=== PATIENT | female | born 1940 | race Caucasian/White ===

== ENCOUNTER 2024-05-15 09:00 | Inpatient (IN) ==
--- NOTE | 2024-05-15 09:26 | Emergency Department Note ---
History of Present Illness General Chief complaint: Fall Stated complaint: FALLS, HIP AND BACK PAIN Time Seen by Provider: 05/15/24 09:09 History of Present Illness Maximum Pain Intensity: 7 This is an 84-year-old female that presents to the emergency department via private vehicle accompanied by daughter and son with complaints of "frequent falls". The patient as well as daughter at bedside and son provide the history. They note that over the past 4 to 5 days the patient has had 6 falls total. 3 of which were yesterday. The patient does not recall the falls and notes the first 1 was when she became tangled in some sheets/blankets. She then notes she laid on the ground for some time but is unable to quantify the duration. She also notes that she has called the ambulance 3 times in the past 2 days for assistance that she cannot get up when she falls. She denies any fevers, chills, nausea, vomiting, striking the head, loss of consciousness, chest pain, shortness of breath, dizziness or lightheadedness. The patient does note low back pain and left hip pain. Daughter at bedside also notes that she fell this past and was on the ground for about 1 hour until they were able to get to her and help her up. The patient does live alone. Home Medications Medication Instructions Recorded Confirmed Type alprazolam 0.5 mg tablet 1 mg PO HS ANXIETY/SLEEP 03/14/24 05/15/24 History amlodipine 5 mg tablet 5 mg PO QA 03/14/24 05/15/24 History cholecalciferol (vitamin D3) 25 1,000 unit PO DAILY 03/14/24 05/15/24 History mcg (1,000 unit) capsule (Vitamin D3) clopidogrel 75 mg tablet 75 mg PO QA 03/14/24 05/15/24 History cyanocobalamin (vitamin B-12) 1,000 mcg PO DAILY 03/14/24 05/15/24 History 1,000 mcg tablet (Vitamin B-12) diphenhydramine HCl 25 mg capsule 25 mg PO DIRECTED PRN Congestion 03/14/24 05/15/24 History (Benadryl) escitalopram oxalate 20 mg tablet 20 mg PO QA 03/14/24 05/15/24 History levothyroxine 125 mcg tablet 125 mcg PO DAILYBB 03/14/24 05/15/24 History rosuvastatin 20 mg tablet 20 mg PO HS 03/14/24 05/15/24 History acetaminophen 325 mg tablet 650 mg (2 x 325 mg) PO Q6H PRN 03/19/24 05/15/24 Rx fever #60 tabs lidocaine 4 % topical patch 1 patch topical DAILY #15 ea 03/19/24 05/15/24 Rx polyethylene glycol 3350 17 gram 17 g PO DAILY PRN constipation #30 03/19/24 05/15/24 Rx oral powder packet (Miralax) ea Allergies Allergy/AdvReac Type Severity Reaction Status Date / Time No Known Allergies Allergy Verified 03/14/24 23:16 Past Med/Surg History Problem List (Updated 05/15/24 @ 16:17 by Otf Fernando PA-C) Hip pain (Acute) Low back pain (Acute) Frequent falls (Acute) Weakness (Acute) Medical History (Updated 05/15/24 @ 16:17 by Otf Fernando PA-C) History of CVA (cerebrovascular accident) Mood disorder Gait abnormality CKD (chronic kidney disease), stage III Hypothyroidism HTN (hypertension) Compression fracture of L3 vertebra Surgical History (Updated 05/15/24 @ 13:01 by Marii Castañeda PA-C) H/O cataract removal with insertion of prosthetic lens H/O laparoscopy S/P partial colectomy Family History (Updated 05/15/24 @ 13:01 by Marii Castañeda PA-C) Other Asthma Cancer Heart disease Social History Smoking Status: Never smoker Tobacco Type: Cigarettes Do You Dip or Chew Tobacco: No; Hx Alcohol Use: No Hx Substance Use: No Preferred Language: Azeri Communication Ability: Effective Head Golf Coach Required: No Beliefs That Will Affect Care: None Current Living Situation: Alone Other Information That Helps Us Care for You: No Feels Safe at Home: Yes Safety Concerns: Feels Safe At This Time Assistive Devices: Denture - Upper, Glasses and Walker Review of Systems A total of 10 systems reviewed and were otherwise negative Physical Exam Vital Signs Vital Signs - 24 hr 05/15/24 09:05 05/15/24 09:18 05/15/24 09:45 Temperature 36.0 C L Temperature Source Temporal Artery Scan Pulse Rate 58 L 62 58 L Respiratory Rate 20 16 Blood Pressure 159/84 H 151/70 H Blood Pressure Mean 109 97 Pulse Oximetry 98 97 Oxygen Delivery Method Room Air Sepsis Recent Fever Within 48 Hours No Sepsis New/Unexplained Change in Mental Status N/A Sepsis Action Taken by Nursing No Action Required 05/15/24 10:36 05/15/24 11:01 Temperature Temperature Source Pulse Rate 70 71 Respiratory Rate 18 18 Blood Pressure 178/71 H 152/87 H Blood Pressure Mean 106 116 Pulse Oximetry 98 98 Oxygen Delivery Method Room Air Room Air Sepsis Recent Fever Within 48 Hours Sepsis New/Unexplained Change in Mental Status Sepsis Action Taken by Nursing VITAL SIGNS - Vital signs and nursing notes were reviewed. Stable and afebrile. GENERAL -84-year-old female appearing her stated age who is in no acute distress. Communicates well with provider and answers questions appropriately. SKIN - Without rashes. No meningeal or petechial rash. HEAD - Normocephalic, Atraumatic. No Choi's Sign or Raccoon's Eyes. No depressed skull fractures palpable. EYES - PERRL with EOMI bilaterally. Without subconjunctival hemorrhage. Palpebral conjunctiva pink and moist with no injection. EARS - No deformities of external structures noted on gross examination bilaterally. No hemotympanum present. No tympanic perforation noted. Handle of malleus, umbo, cone of light, pars tensa/flaccid all easily visualized. NOSE - Midline and without cyanosis. No epistaxis or clear watery discharge noted. Septum midline without deviation. No septal hematoma noted. No overlying ecchymosis noted. MOUTH/OROPHARYNX - Without perioral cyanosis. Tongue midline with equal elevation of palate bilaterally. No blood noted in the oropharynx. No tonsillar hypertrophy, erythema, or exudates noted. No dental fractures noted. NECK - No tenderness to palpation over the cervical spinous processes. No cervical paraspinal muscle tenderness noted. LUNGS - Chest wall symmetric without accessory muscle use, intercostals retractions, or central cyanosis. No flail chest or depressed fractures noted. No paradoxical chest wall movements noted. No tenderness with deep inspiration noted against the examiner's applied pressure to the lateral chest mena. Normal vesicular breath sounds CTA B/L. No wheezes, rales, or rhonchi appreciated. CARDIAC - RRR ABDOMEN - Abdominal contour normal and without pulsations or visible masses. BS normoactive all four quadrants. No rebound tenderness or guarding noted. Negative [place]'s or Ornelas Capellan's Signs. No tenderness, palpable masses, hepatosplenomegaly, or ascites noted. MUSCULOSKELETAL-there is tenderness to the inferior aspect of the L-spine, midline. This extends to the paraspinous musculature near the sacrum. There is also left lateral hip tenderness. There is no overlying ecchymosis. EXTREMITIES - +5/5 strength noted in UE/LE bilaterally. NEUROLOGIC - Cranial nerves II through XII grossly intact. PSYCH - A&O, and cooperates fully with examiner. Pt is very pleasant and interacts well with examiner. Course Administered Medications Acetaminophen (Acetaminophen 500 Mg Tab) 1,000 mg PO Q8H [facility] Stop: 06/14/24 13:59 Last Admin: 05/15/24 14:57 Dose: 1,000 mg Documented By: JESENIA Heparin Sodium (Porcine) (Heparin Sod 5,000 Unit/0.5 Ml Vial) 5,000 units SQ Q8 [facility] Stop: 06/14/24 13:59 Last Admin: 05/15/24 14:58 Dose: 5,000 units Documented By: JESENIA Sodium Chloride (Nss) 1,000 mls @ 80 mls/hr IV .[id number] [facility] Stop: 05/16/24 15:29 Last Admin: 05/15/24 15:02 Dose: 80 mls/hr Documented By: [facility] Medical Decision Making Laboratory Data 05/15/24 09:50 05/15/24 09:50 Lab Results 05/15/24 Range/Units 09:50 WBC 7.92 (4.8-10.8) K/ul RBC 3.88 L (4.20-5.40) M/uL Hgb 11.8 L (12.0-16.0) g/dl Hct 35.9 L (37.0-47.0) % MCV 92.5 (80.0-100.0) fL MCH 30.4 (25.0-34.0) pg MCHC 32.9 (32.0-36.0) g/dL RDW Std Deviation 43.7 (36.4-46.3) fL RDW Coeff of Genet 12.9 (11.5-14.5) % Plt Count 210 (130-400) K/uL MPV 9.6 (9.4-12.4) fL Immature Gran % (Auto) 0.3 % Neut % (Auto) 64.2 % Lymph % (Auto) 26.4 % [place] % (Auto) 7.2 % Eos % (Auto) 1.4 % Baso % (Auto) 0.5 % Neut # (Auto) 5.09 (1.40-6.50) K/uL Lymph # (Auto) 2.09 (1.20-3.40) K/uL [place] # (Auto) 0.57 (0.11-0.59) K/uL Eos # (Auto) 0.11 (0.00-0.50) K/uL Baso # (Auto) 0.04 (0.00-0.20) K/uL Immature Gran # (Auto) 0.02 (0.01-0.20) K/uL PT 11.0 (9.0-12.0) Seconds INR 1.0 (0.9-1.1) APTT 22 (21-31) Seconds PTT Ratio 0.8 Sodium 141 (136-145) mmol/L Potassium 3.8 (3.5-5.1) mmol/L Chloride 107 (98-107) mmol/L Carbon Dioxide 27 (21-32) mmol/L Anion Gap 7 (3-11) BUN 17 (6-23) mg/dl Creatinine 1.21 H (0.6-1.2) mg/dl Est Cr Clr Drug Dosing Not Reportable Est GFR ( Amer) 47.6 ml/min Est GFR (Non-Af Amer) 41.1 ml/min BUN/Creatinine Ratio 14.0 (10-20) Glucose 88 (70-99(Fasting)) mg/dl Calcium 9.3 (8.6-10.3) mg/dl Magnesium 2.2 (1.7-2.4) mg/dl Total Bilirubin 0.6 (0.2-1.0) mg/dl AST 16 (13-39) U/L ALT 9 (7-52) U/L Alkaline Phosphatase 48 (34-104) U/L Total Creatine Kinase 70 (26-192) U/L Troponin I High Sens 2.9 (0-14) pg/ml Total Protein 7.1 (6.0-8.3) gm/dl Albumin 4.3 (3.4-5.0) gm/dl Globulin 2.8 (2.5-4.0) gm/dl Albumin/Globulin Ratio 1.5 (0.9-2) TSH 0.662 (0.300-4.500) uIu/ml Imaging Data Radiologist's Impression: Cervical Spine CT 05/15/24 09:[address] DOSE: HISTORY: falls x 6 in the past few days TECHNIQUE: Multiaxial CT images of the cervical spine were performed and reformatted in the sagittal and coronal plane without the use of contrast. A dose lowering technique was utilized adhering to the principles of ALARA. COMPARISON: Cervical spine CT 03/14/2024. FINDINGS: No fractures. No subluxation. Prevertebral soft tissues and the C1-C2 interval are intact. No pneumothorax. Severe disc space narrowing with large anterior osteophytes from C4 through C7 again noted. Moderate facet degenerative changes. IMPRESSION: No fractures within the cervical spine. ACT 112: Negative or not required by law. Electronically signed by: Samir Rooney M.D. 05/15/2024 9:58 AM Chest X-Ray 05/15/24 09:18 XR chest 1V portable HISTORY: falls x 6 in the past few days COMPARISON: Chest 03/14/2024. FINDINGS: No pneumothorax. No pleural effusions. The lungs are clear. The cardiac silhouette is top normal in size. There are calcifications within the aortic knob. No acute fractures. IMPRESSION: No significant change compared to the prior study. No acute process. ACT 112: Negative or not required by law. Electronically signed by: Samir Rooney M.D. 05/15/2024 10:[address] 05/15/24 09:[address] DOSE: HISTORY: falls x 6 in the past few days TECHNIQUE: Multiaxial CT images of the head were performed without the use of intravenous contrast. Automated exposure control was utilized for this study. A dose lowering technique was utilized adhering to the principles of ALARA. Comparison: Head CT 03/14/2024. Findings: Mild mucosal thickening within the paranasal sinuses. Mild nasal bone deformities are likely chronic. The mastoid air cells are clear. The calvarium and skull base are intact. There is no mass, hematoma, midline shift, acute infarct. White matter hypodensity is nonspecific but suggestive of microvascular ischemic change. The ventricles and sulci demonstrate mild age-related involutional changes. Old bilateral basal ganglia infarcts again noted. Impression: No significant change compared to the prior study. No acute intracranial abnormality. ACT 112: Negative or not required by law. Electronically signed by: Samir Rooney M.D. 05/15/2024 9:[address] 05/15/24 09:18 CT lumbar spine wo con HISTORY: 84 years-old Female falls x 6 in the past few days acute pain in the low back status post fall. History of L1 and L2 transverse process and T12 fractures COMPARISON: CT pelvis same day, MRI lumbar spine 03/15/2024 TECHNIQUE: Multiple axial CT images of the lumbar spine were obtained without IV contrast. A dose lowering technique was used consistent with the principals of ALARA. FINDINGS: Atherosclerosis of the aorta. Colonic diverticulosis. Sigmoid colonic anastomosis. Suboptimal evaluation of the central canal or neural foramina by CT technique. There is at least mild central canal stenosis at L2-L3 and L3-L4. Chronic L3 compression deformity. Multilevel vacuum disc phenomena with moderate intervertebral disc space narrowing, severe spondylotic spurring and facet arthrosis. Moderate degeneration of the SI joints. Healing subacute to chronic appearing L1 and L2 transverse process fractures. IMPRESSION: 1. No acute fracture or subluxation of the lumbar spine. 2. Chronic L3 compression deformity. ACT 112: Negative or not required by law. The above report was generated using voice recognition software. It may contain grammatical, syntax or spelling errors. Electronically signed by: Syed Estrada M.D. 05/15/2024 10:[address] 05/15/24 09:18 CT pelvis wo con HISTORY: 84 years-old Female falls x 6 in the past few days, pain acute pelvic pain status post fall COMPARISON: CT lumbar spine of same day TECHNIQUE: Multiple axial CT images of the pelvis were obtained without IV contrast. A dose lowering technique was used consistent with the principals of ALARA. FINDINGS: Colonic diverticulosis with sigmoid suture material. No evidence of acute diverticulitis. No acute intrapelvic abnormality. Postoperative changes of the anterior abdominal wall. Atherosclerosis of the aorta. Unremarkable musculature. Demineralized appearance of the bones. No acute fracture or subluxation identified. Mild to moderate osteoarthritis of the hips. Partially imaged chronic L3 compression deformity. IMPRESSION: No acute fracture identified. ACT 112: Negative or not required by law. The above report was generated using voice recognition software. It may contain grammatical, syntax or spelling errors. Electronically signed by: Syed Estrada M.D. 05/15/2024 10:09 AM MDM Narrative Patient was seen and evaluated as above in room C11b. Review was performed of triage nursing notes and vital signs. I did review pertinent previous visits and patient history. After obtaining a thorough history and physical examination the above work up was performed. Patient presents to us today for evaluation of frequent falls. She also has low back pain and left hip pain. CT imaging was performed of the head, C-spine as well as L-spine and pelvis. Formal radiology report is as above. I did also personally reviewed the imaging from her interpretation no fracture or dislocation. An EKG was also performed and this reveals normal sinus rhythm at a rate of 60 bpm. QTc 470. QRS 86. No ST elevation. Chest x-ray was also obtained and per my interpretation is without acute process. Laboratory studies reveal no leukocytosis. Minor anemia noted with hemoglobin at 11.8. Coags normal. Mild elevation of creatinine 1.21 which is mildly elevated compared to the patient's baseline. Magnesium is normal. Troponin returned normal. Total CK normal as well. TSH reveals euthyroid state. Urinalysis does not suggest infection, but will note trace leukocytes. At this time noting frequent falls I do believe that further evaluation and management is warranted in the inpatient setting. Case discussed with the hospitalist service. Please refer to further documentation regarding her stay. Case was discussed with the attending physician. GCS: 15 In the evaluation and treatment of this patient the following differential diagnoses were entertained: Fracture, dislocation, subluxation, contusion, UTI, sepsis, CVA, among others. Impression & Plan Frequent falls, Low back pain, Hip pain Discharge Plan Visit Data Chief Complaint: Fall Stated Complaint: FALLS, HIP AND BACK PAIN ED Provider: Adam Del Rio ED Midlevel Provider: Otf Fernando Discharge Problem: Frequent falls, Low back pain, Hip pain Patient Disposition: Admitted As Inpatient Condition: Good Discharge Instructions Interventions: ED Discharge Assessment Last Done: 05/15/24 13:06
--- NOTE | 2024-05-15 09:56 | CT Scan Report ---
HEAD CT NONCONTRAST CT DOSE: HISTORY: falls x 6 in the past few days TECHNIQUE: Multiaxial CT images of the head were performed without the use of intravenous contrast. A utomated exposure control was utilized for this study. A dose lowering technique was utilized adheri ng to the principles of ALARA. Comparison: Head CT 03/14/2024. Findings: Mild mucosal thickening within the paranasal sinuses. Mild nasal bone deformities are likel y chronic. The mastoid air cells are clear. The calvarium and skull base are intact. There is no mass , hematoma, midline shift, acute infarct. White matter hypodensity is nonspecific but suggestive of m icrovascular ischemic change. The ventricles and sulci demonstrate mild age-related involutional tobin ges. Old bilateral basal ganglia infarcts again noted. Impression: No significant change compared to the prior study. No acute intracranial abnormality. ACT 112: Negative or not required by law. Electronically signed by: Samir Rooney M.D. 05/15/2024 9:54 AM
--- NOTE | 2024-05-15 10:00 | CT Scan Report ---
CERVICAL SPINE CT CT DOSE: HISTORY: falls x 6 in the past few days TECHNIQUE: Multiaxial CT images of the cervical spine were performed and reformatted in the sagittal and coronal plane without the use of contrast. A dose lowering technique was utilized adhering to th e principles of ALARA. COMPARISON: Cervical spine CT 03/14/2024. FINDINGS: No fractures. No subluxation. Prevertebral soft tissues and the C1-C2 interval are intact. No pneumothorax. Severe disc space narrowing with large anterior osteophytes from C4 through C7 again noted. Moderate facet degenerative changes. IMPRESSION: No fractures within the cervical spine. ACT 112: Negative or not required by law. Electronically signed by: Samir Rooney M.D. 05/15/2024 9:58 AM
--- NOTE | 2024-05-15 10:07 | CT Scan Report ---
CT lumbar spine wo con HISTORY: 84 years-old Female falls x 6 in the past few days acute pain in the low back status post f all. History of L1 and L2 transverse process and T12 fractures COMPARISON: CT pelvis same day, MRI lumbar spine 03/15/2024 TECHNIQUE: Multiple axial CT images of the lumbar spine were obtained without IV contrast. A dose low ering technique was used consistent with the principals of GLORY. FINDINGS: Atherosclerosis of the aorta. Colonic diverticulosis. Sigmoid colonic anastomosis. Suboptimal evaluat ion of the central canal or neural foramina by CT technique. There is at least mild central canal jose d nosis at L2-L3 and L3-L4. Chronic L3 compression deformity. Multilevel vacuum disc phenomena with mod erate intervertebral disc space narrowing, severe spondylotic spurring and facet arthrosis. Moderate degeneration of the SI joints. Healing subacute to chronic appearing L1 and L2 transverse process fra ctures. IMPRESSION: 1. No acute fracture or subluxation of the lumbar spine. 2. Chronic L3 compression deformity. ACT 112: Negative or not required by law. The above report was generated using voice recognition software. It may contain grammatical, syntax o r spelling errors. Electronically signed by: Syed Estrada M.D. 05/15/2024 10:06 AM
[2024-05-15 10:10] LABS: Basophils # (auto) 0.04 K/uL (0.00-0.20); Basophils % (auto) 0.5 %; Eosinophils # (auto) 0.11 K/uL (0.00-0.50); Eosinophils % (auto) 1.4 %; Hematocrit (blood only) 35.9 % (37.0-47.0); Hemoglobin 11.8 g/dl (12.0-16.0); Immature Granulocytes # (auto) 0.02 K/uL (0.01-0.20); Immature Granulocytes % (auto) 0.3 %; Lymphocytes # (auto) 2.09 K/uL (1.20-3.40); Lymphocytes % (auto) 26.4 %; Mean Corpuscular Hemoglobin 30.4 pg (25.0-34.0); Mean Corpuscular Hgb Conc 32.9 g/dL (32.0-36.0); Mean Corpuscular Volume 92.5 fL (80.0-100.0); Mean Platelet Volume 9.6 fL (9.4-12.4); Monocytes # (auto) 0.57 K/uL (0.11-0.59); Monocytes % (auto) 7.2 %; Neutrophils # (auto) 5.09 K/uL (1.40-6.50); Neutrophils % (auto) 64.2 %; Platelet Count 210 K/uL (130-400); RDW Coefficient of Variation 12.9 % (11.5-14.5); RDW Standard Deviation 43.7 fL (36.4-46.3); Red Blood Count 3.88 M/uL (4.20-5.40); White Blood Count 7.92 K/ul (4.8-10.8)
--- NOTE | 2024-05-15 10:10 | CT Scan Report ---
CT pelvis wo con HISTORY: 84 years-old Female falls x 6 in the past few days, pain acute pelvic pain status post fall COMPARISON: CT lumbar spine of same day TECHNIQUE: Multiple axial CT images of the pelvis were obtained without IV contrast. A dose lowering technique was used consistent with the principals of GLORY. FINDINGS: Colonic diverticulosis with sigmoid suture material. No evidence of acute diverticulitis. No acute in trapelvic abnormality. Postoperative changes of the anterior abdominal wall. Atherosclerosis of the a hermelinda. Unremarkable musculature. Demineralized appearance of the bones. No acute fracture or subluxation identified. Mild to moderate osteoarthritis of the hips. Partially imaged chronic L3 compression deformity. IMPRESSION: No acute fracture identified. ACT 112: Negative or not required by law. The above report was generated using voice recognition software. It may contain grammatical, syntax o r spelling errors. Electronically signed by: Syed Estrada M.D. 05/15/2024 10:09 AM
--- NOTE | 2024-05-15 10:14 | XRay Report ---
XR chest 1V portable HISTORY: falls x 6 in the past few days COMPARISON: Chest 03/14/2024. FINDINGS: No pneumothorax. No pleural effusions. The lungs are clear. The cardiac silhouette is top n ormal in size. There are calcifications within the aortic knob. No acute fractures. IMPRESSION: No significant change compared to the prior study. No acute process. ACT 112: Negative or not required by law. Electronically signed by: Samir Rooney M.D. 05/15/2024 10:13 AM
[2024-05-15 10:29] LABS: Alanine Aminotransferase 9 U/L (7-52); Albumin Globulin Ratio 1.5 (0.9-2); Albumin Level 4.3 gm/dl (3.4-5.0); Alkaline Phosphatase 48 U/L (34-104); Anion Gap 7 (3-11); Aspartate Aminotransferase 16 U/L (13-39); Bilirubin,Total 0.6 mg/dl (0.2-1.0); Blood Urea Nitrogen 17 mg/dl (6-23); Calcium 9.3 mg/dl (8.6-10.3); Carbon Dioxide 27 mmol/L (21-32); Chloride 107 mmol/L (98-107); Est GFR (African American) 47.6 ml/min; Est GFR (Non-African American) 41.1 ml/min; Globulin 2.8 gm/dl (2.5-4.0); Glucose 88 mg/dl (70-99(Fasting)); Potassium 3.8 mmol/L (3.5-5.1); Sodium 141 mmol/L (136-145); Total Protein 7.1 gm/dl (6.0-8.3)
[2024-05-15 10:35] LABS: Troponin I High Sensitivity 2.9 pg/ml (0-14)
[2024-05-15 10:41] LABS: Partial Thromboplastin Ratio 0.8; Partial Thromboplastin Time 22 Seconds (21-31)
[2024-05-15 10:45] LABS: Thyroid Stimulating Hormone 0.662 uIu/ml (0.300-4.500)
--- NOTE | 2024-05-15 11:28 | History & Physical Report ---
Date of Service May 15, 2024 Assessment & Plan (1) Frequent falls: (2) Weakness: (3) Gait abnormality: Plan: This is an 84yo F with a PMH of history of CVA, hypothyroidism, HTN, depression, gait abnormality with frequent falls and other medical problems listed below who presents from home after 3 falls in the past day. Imaging reviewed as above- no acute traumatic findings or fractures Lumbar spine CT re-demonstrating chronic L3 compression deformity Lives alone and ambulates with a walker. Does not currently feel safe to return home unless stronger UA pending Fall precautions PT/OT evals for likely placement Lidocaine patch, scheduled Tylenol (4) HTN (hypertension): Plan: BP 152/87 Continue amlodipine (5) CKD (chronic kidney disease), stage III: Plan: Cr 1.21 (baseline ~ 1.2). Monitor with daily BMP (6) Hypothyroidism: Plan: Continue levothyroxine (7) Mood disorder: Plan: Stable. Continue SSRI, alprazolam at night (may be beneficial to wean dose given age and fall risk) (8) History of CVA (cerebrovascular accident): Plan: Continue plavix, statin DVT Ppx: SQ heparin Code status: DNR per discussion with patient PCP: KEN Ventura Dispo: admitted to med/surg Patient seen in collaboration with Dr. Murcia. Please see addendum. I spent a total of 75 minutes coordinating, documenting, and providing care for this patient excluding time spent in the performance of separately billed services. History of Present Illness Chief Complaint: frequent falls Primary Care Provider: Carlos Fung MD This is an 84yo F with a PMH of history of CVA, hypothyroidism, HTN, depression, gait abnormality with frequent falls and other medical problems listed below who presents from home after 3 falls in the past day. Lives alone and ambulates with a walker. Falls occur when she is transitioning from bed to walking and also when tipping back when holding walker and falling backwards. More weak getting herself up. Also having more issues with urinary incontinence per family at bedside. Patient denies any focal weakness or difficulty with speech or swallowing. Taking medications as prescribed. Feels like she needs more help and cannot return home safely unless she is stronger. No F/C, lightheadedness, visual changes, CP, SOB, N/V, abd pain, dysuria, diarrhea or constipation. + urinary frequency and urgency. + lower back pain that is chronic but exacerbated by falls. Allergies Allergy/AdvReac Type Severity Reaction Status Date / Time No Known Allergies Allergy Verified 03/14/24 23:16 Home Medications Medication Instructions Recorded Confirmed Type alprazolam 0.5 mg tablet 1 mg PO HS ANXIETY/SLEEP 03/14/24 05/15/24 History amlodipine 5 mg tablet 5 mg PO QAM 03/14/24 05/15/24 History cholecalciferol (vitamin D3) 25 1,000 unit PO DAILY 03/14/24 05/15/24 History mcg (1,000 unit) capsule (Vitamin D3) clopidogrel 75 mg tablet 75 mg PO QAM 03/14/24 05/15/24 History cyanocobalamin (vitamin B-12) 1,000 mcg PO DAILY 03/14/24 05/15/24 History 1,000 mcg tablet (Vitamin B-12) diphenhydramine HCl 25 mg capsule 25 mg PO DIRECTED PRN Congestion 03/14/24 05/15/24 History (Benadryl) escitalopram oxalate 20 mg tablet 20 mg PO QAM 03/14/24 05/15/24 History levothyroxine 125 mcg tablet 125 mcg PO DAILYBB 03/14/24 05/15/24 History rosuvastatin 20 mg tablet 20 mg PO HS 03/14/24 05/15/24 History acetaminophen 325 mg tablet 650 mg (2 x 325 mg) PO Q6H PRN 03/19/24 05/15/24 Rx fever #60 tabs lidocaine 4 % topical patch 1 patch topical DAILY #15 ea 03/19/24 05/15/24 Rx polyethylene glycol 3350 17 gram 17 g PO DAILY PRN constipation #30 03/19/24 05/15/24 Rx oral powder packet (Miralax) ea Past Med/Surg History Problem List (Updated 05/15/24 @ 13:08 by Marii Castañeda PA-C) Frequent falls (Acute) Weakness (Acute) Medical History (Updated 05/15/24 @ 13:08 by Marii Castañeda PA-C) History of CVA (cerebrovascular accident) Mood disorder Gait abnormality CKD (chronic kidney disease), stage III Hypothyroidism HTN (hypertension) Compression fracture of L3 vertebra Surgical History (Updated 05/15/24 @ 13:01 by Marii Castañeda PA-C) H/O cataract removal with insertion of prosthetic lens H/O laparoscopy S/P partial colectomy Family History (Updated 05/15/24 @ 13:01 by Marii Castañeda PA-C) Other Asthma Cancer Heart disease Social History Smoking Status: Never smoker Tobacco Type: Cigarettes Do You Dip or Chew Tobacco: No; Hx Alcohol Use: No Hx Substance Use: No Preferred Language: Tajik Communication Ability: Effective Escrow Secretary Required: No Beliefs That Will Affect Care: None Current Living Situation: Alone Other Information That Helps Us Care for You: No Feels Safe at Home: Yes Safety Concerns: Feels Safe At This Time Assistive Devices: Denture - Upper, Glasses and Walker Review of Systems Review of Systems: At least ten systems reviewed and negative except as noted in the HPI. Physical Exam Physical Exam: General Appearance: WD/WN, vitals as above, NAD, sitting up in bed, pleasant, conversing easily Head: normocephalic, atraumatic Eyes: normal inspection, PERRL, conjunctivae normal, anicteric sclerae ENT: external ear and nose normal, oropharynx normal Neck: normal visual inspection, trachea midline, no thyromegaly Respiratory: normal respiratory effort, lungs clear to auscultation, no wheeze, rales, rhonchi. No accessory muscle use Cardiovascular: regular rate, rhythm, normal peripheral pulses, no BLE edema. Vessels: no JVD Chest: normal inspection of chest Abdomen/GI: normal bowel sounds, soft, nontender, no hepatosplenomegaly Extremities/Musculoskeletal: no cyanosis or clubbing, extremities motor strength 5/5 Neurologic: PERRL, EOMI, accommodation nl, no face palsy, no dysarthria, CN's II-XI intact bilaterally and moves all extremities Psychiatric: A+Ox3, + anxious Skin: no rashes, normal color, warm/dry Results & Data Results & Data Vital Signs (Past 12 Hours) Vital Signs Temp Pulse Resp BP Pulse Ox O2 Del Method 05/15/24 11:01 71 18 152/87 H 98 Room Air 05/15/24 10:36 70 18 178/71 H 98 Room Air 05/15/24 09:45 58 L 05/15/24 09:18 62 16 151/70 H 97 Room Air 05/15/24 09:05 36.0 C L 58 L 20 159/84 H 98 Laboratory Results Short CBC 05/15/24 Range/Units 09:50 WBC 7.92 (4.8-10.8) K/ul Hgb 11.8 L (12.0-16.0) g/dl Hct 35.9 L (37.0-47.0) % Plt Count 210 (130-400) K/uL BMP 05/15/24 09:50 Sodium 141 Potassium 3.8 Chloride 107 Carbon Dioxide 27 BUN 17 Creatinine 1.21 H Glucose 88 Calcium 9.3 Cardiac Enzymes 05/15/24 Range/Units 09:50 Total Creatine Kinase 70 (26-192) U/L Liver Function 05/15/24 Range/Units 09:50 Total Bilirubin 0.6 (0.2-1.0) mg/dl AST 16 (13-39) U/L ALT 9 (7-52) U/L Alkaline Phosphatase 48 (34-104) U/L Albumin 4.3 (3.4-5.0) gm/dl Diagnostic Findings Cervical Spine CT 05/15/24 09:[address] DOSE: HISTORY: falls x 6 in the past few days TECHNIQUE: Multiaxial CT images of the cervical spine were performed and reformatted in the sagittal and coronal plane without the use of contrast. A dose lowering technique was utilized adhering to the principles of ALARA. COMPARISON: Cervical spine CT 03/14/2024. FINDINGS: No fractures. No subluxation. Prevertebral soft tissues and the C1-C2 interval are intact. No pneumothorax. Severe disc space narrowing with large anterior osteophytes from C4 through C7 again noted. Moderate facet degenerative changes. IMPRESSION: No fractures within the cervical spine. ACT 112: Negative or not required by law. Electronically signed by: Samir Rooney M.D. 05/15/2024 9:58 AM Chest X-Ray 05/15/24 09:18 XR chest 1V portable HISTORY: falls x 6 in the past few days COMPARISON: Chest 03/14/2024. FINDINGS: No pneumothorax. No pleural effusions. The lungs are clear. The cardiac silhouette is top normal in size. There are calcifications within the aortic knob. No acute fractures. IMPRESSION: No significant change compared to the prior study. No acute process. ACT 112: Negative or not required by law. Electronically signed by: Samir Rooney M.D. 05/15/2024 10:[address] 05/15/24 09:[address] DOSE: HISTORY: falls x 6 in the past few days TECHNIQUE: Multiaxial CT images of the head were performed without the use of intravenous contrast. Automated exposure control was utilized for this study. A dose lowering technique was utilized adhering to the principles of ALARA. Comparison: Head CT 03/14/2024. Findings: Mild mucosal thickening within the paranasal sinuses. Mild nasal bone deformities are likely chronic. The mastoid air cells are clear. The calvarium and skull base are intact. There is no mass, hematoma, midline shift, acute infarct. White matter hypodensity is nonspecific but suggestive of microvascular ischemic change. The ventricles and sulci demonstrate mild age-related involutional changes. Old bilateral basal ganglia infarcts again noted. Impression: No significant change compared to the prior study. No acute intracranial abnormality. ACT 112: Negative or not required by law. Electronically signed by: Samir Rooney M.D. 05/15/2024 9:[address] 05/15/24 09:18 CT lumbar spine wo con HISTORY: 84 years-old Female falls x 6 in the past few days acute pain in the low back status post fall. History of L1 and L2 transverse process and T12 fractures COMPARISON: CT pelvis same day, MRI lumbar spine 03/15/2024 TECHNIQUE: Multiple axial CT images of the lumbar spine were obtained without IV contrast. A dose lowering technique was used consistent with the principals of ALARA. FINDINGS: Atherosclerosis of the aorta. Colonic diverticulosis. Sigmoid colonic anastomosis. Suboptimal evaluation of the central canal or neural foramina by CT technique. There is at least mild central canal stenosis at L2-L3 and L3-L4. Chronic L3 compression deformity. Multilevel vacuum disc phenomena with moderate intervertebral disc space narrowing, severe spondylotic spurring and facet arthrosis. Moderate degeneration of the SI joints. Healing subacute to chronic appearing L1 and L2 transverse process fractures. IMPRESSION: 1. No acute fracture or subluxation of the lumbar spine. 2. Chronic L3 compression deformity. ACT 112: Negative or not required by law. The above report was generated using voice recognition software. It may contain grammatical, syntax or spelling errors. Electronically signed by: Syed Estrada M.D. 05/15/2024 10:[address] 05/15/24 09:18 CT pelvis wo con HISTORY: 84 years-old Female falls x 6 in the past few days, pain acute pelvic pain status post fall COMPARISON: CT lumbar spine of same day TECHNIQUE: Multiple axial CT images of the pelvis were obtained without IV contrast. A dose lowering technique was used consistent with the principals of GLORY. FINDINGS: Colonic diverticulosis with sigmoid suture material. No evidence of acute diverticulitis. No acute intrapelvic abnormality. Postoperative changes of the anterior abdominal wall. Atherosclerosis of the aorta. Unremarkable musculature. Demineralized appearance of the bones. No acute fracture or subluxation identified. Mild to moderate osteoarthritis of the hips. Partially imaged chronic L3 compression deformity. IMPRESSION: No acute fracture identified. ACT 112: Negative or not required by law. The above report was generated using voice recognition software. It may contain grammatical, syntax or spelling errors. Electronically signed by: Syed Estrada M.D. 05/15/2024 10:09 AM Supervising Physician Co-Signing Physician Notes Pt was seen and examined by myself, Clementine Murcia MD on the day of service. Care was coordinated with Marii Castañeda PA-C. Pt presenting from home with increasing falls per family, denies LOC. On exam AAOx3, RRR, abdomen soft UA unremarkable Hgb noting mild anemia in 11 range Cr 1.21, was 0.90-1.06 a month ago Pelvis and lumbar spine CT noting chronic L3 fracture but no acute fractures Head CT unremarkable EKG- NSR Falls, generalized weakness, chronic L3 fracture- PT/OT, pain control. Will likely need short term placement Mild anemia- consider further workup with iron panel, b12 and folate levels to rule out as possible cause of weakness/fatigue Acute kidney injury- Cr slightly above last normal range, 2bags IV NSS. Monitor with AM BMP Otherwise as above. I spent a total [id number] coordinating, documenting, and providing care for this patient excluding time spent in the performance of separately billed services
--- NOTE | 2024-05-15 11:54 | Electrocardiogram Report ---
Test Reason : Blood Pressure : / mmHG Vent. Rate : 060 BPM Atrial Rate : 060 BPM P-R Int : 190 ms QRS Dur : 086 ms QT Int : 470 ms P-R-T Axes : 058 005 037 degrees QTc Int : 470 ms Normal sinus rhythm Normal ECG When compared with ECG of 14-MAR-2024 19:16, No significant change was found Confirmed by González Crowley ([id number]) on 05/15/2024 11:53:50 AM Referred By: REFERRED SELF Confirmed By:González Crowley
[2024-05-15 12:37] LABS: Magnesium 2.2 mg/dl (1.7-2.4)
[2024-05-15 13:02] LABS: Appearance Urine Clear (Clear); Bacteria Urine Automated None Seen (None Seen); Bilirubin Urine Negative (Negative); Blood Urine Negative (Negative); Cast Urine Automated 0-2 /lpf (0-2); Color Urine Yellow; Epithelial Cell Urine Auto 0-2 /hpf (0-2); Glucose Urine UA Negative (Negative); Ketones Urine Negative (Negative); Leukocyte Esterase Urine Trace (Negative); Nitrite Urine Negative (Negative); Protein Urine Negative (Negative); RBC Urine Automated 0-2 /hpf (0-2); Specific Gravity Urine 1.006 (1.000-1.030); Urobilinogen Urine Negative (Negative); WBC Urine Automated 0-5 /hpf (0-5)
[2024-05-15] MEDS ORDERED: POLYETHYLENE (MIRALAX) 17 GM PACK PO PRN (13:52)
[2024-05-15] MEDS ORDERED: ACETAMINOPHEN 325 MG TAB PO PRN (13:52)
[2024-05-15] MEDS ORDERED: ONDANSETRON INJ 2 MG/ML 2 ML VIAL IV PRN (13:52)
[2024-05-15] MEDS: ACETAMINOPHEN 500 MG TAB PO SCH (14:57)
[2024-05-15] MEDS: HEPARIN SOD 5,000 UNIT/0.5 ML VIAL SQ SCH (14:58)
[2024-05-15] MEDS: SODIUM CHLORIDE 0.9% 1,000 ML IV SCH (15:02)
[2024-05-15] MEDS ORDERED: diphenhydrAMINE Capsule 25 MG CAP PO PRN (17:43)
[2024-05-15] MEDS: ROSUVASTATIN CALCIUM 20 MG TAB PO SCH (20:33)
[2024-05-15] MEDS: ALPRAZolam 0.5 MG TABLET PO SCH (20:34)
--- OUTSIDE RECORDS SUMMARY | 2024-05-16 00:50 | External Medical Summary | Summary of Care ---
Author Name Unknown Organization [facility] Address [address] [place] [address] Phone [phone] Care Team Providers Care Cutter Grind Tool Technician Name Role Phone Sandi Ventura PA-C Primary Care Provider [phone] Reason for Visit * Reason Onset Date Comments Hospital Follow-Up [facility]02/22 [facility] Hospital Follow-Up 04/03/2024 Encounter Details Date Type Department Care Team (Late st Contact Info) Description 04/03/2024 11:00 AM EDT Office Visit [address] [place] [id number] Sandi Ventura PA-C [facility] [facility] [address] [place] [address] [phone] Hospital discharge follow-up*; OPAL (generalized anxiety disorder); Compression fracture of L3 vertebra with routine healing, subsequent encounter; Ambulatory dysfunction Allergies Active Allergy Reactions Criticality Noted Date Comments Amoxicillin 04/21/2023 Atorvastatin 06/15/2016 nausea Amoxicillin-Pot Clavulanate 03/11/20 15 "severe yeast infection" Clarithromycin 05/25/2022 Nitrofurantoin Monohyd Macro Unknown Medium 014 Ramipril Cough Low 06/08/2012 Tramadol Itching High 03/11/2016 documented as of this encounter (statuses as of 04/03/2024) Medications Medication Sig Dispensed Refills Start Date End Date Status Hydrocortisone 2.5 % External Cream Administer into the rectum 3 times a day as needed for Hemorrhoids. 28 g 04/22/2023 Active Additional Information Patient not taking.Reported on 02/02/2024 Triamcinolone Acetonide 0.1 % External Cream (Aristocort) 04/25/2023 Active Levothyroxine Sodium 125 MCG Oral Tablet (Levoxyl)Indication s:Acquired hypothyroidism Take 1 Tablet by mouth in the morning. (at least 30 min prior to breakfast or other meds). 90 Tablet 3 05/11/2023 Active Clopidogrel Bisulfate 75 MG Oral Tablet (pLAVix)Indications :Cerebrovascular disease, arteriosclerotic, post-stroke Take 1 Tablet by mouth in the morning. 90 Tablet 3 08/01/2023 Active Pantoprazole Sodium 40 MG Oral Tablet Delayed Release (Protonix)Indicatio ns:Gastroesophageal reflux disease without esophagitis Take 1 Tablet by mouth in the morning. 90 Tablet 3 08/01/2023 Active Additional Information Patient not taking.Reported on 04/03/2024 Rosuvastatin Calcium 20 MG Oral Tablet (Crestor)Indication s:Cerebrovascular disease, arteriosclerotic, post-stroke Take 1 Tablet by mouth at bedtime. 90 Tablet 3 08/01/2023 Active amLODIPine Besylate 5 MG Oral Tablet (Norvasc)Indication s:HTN, goal below 140/90 take 1 tablet by mouth every morning 90 Tablet 3 09/17/2023 Active Escitalopram Oxalate 20 MG Oral Tablet (Lexapro) Take 1 Tablet by mouth in the morning. 30 Tablet 2 03/05/2024 Active Lidocaine 4 % External Patch (Aspercreme Lidocaine) Place 1 Patch topically on the skin daily. 03/19/2024 Active diphenhydrAMINE HCl 25 MG Oral Capsule (Benadryl) Take 1 Capsule by mouth at bedtime as needed for Other (congestion). 03/14/2024 Active Cyanocobalamin 1000 MCG Oral Tablet (Cyanocobalamin) Take 1 Tablet by mouth once. 03/14/2024 Active Vitamin D3 1000 UNIT Oral Capsule daily. 03/14/2024 Active ALPRAZolam 0.5 MG Oral Tablet (xaNAX)Indications: OPAL (generalized anxiety disorder) Take 1 Tablet by mouth 2 times a day as needed for Anxiety or Sleep. 180 Tablet 04/03/2024 Active ALPRAZolam 0.5 MG Oral Tablet (xaNAX)Indications: OPAL (generalized anxiety disorder) Take 1 Tablet by mouth 2 times a day as needed for Anxiety or Sleep. 180 Tablet 12/08/2023 4 Discontinu ed(Refill) documented as of this encounter (statuses as of 04/03/2024) Active Problems Problem Noted Date Diagnosed Date Repeated falls 04/15/2023 Complicated grief 10/14/2022 History of CVA (cerebrovascular accident) 2021 Hypertensive kidney disease with stage 3b chronic kidney disease 09/01/2020 Overview: Per CKD protocol Chronic venous stasis dermatitis of both lower e xtremities 07/21/2018 Chronic fatigue 01/13/2018 Moderate episode of recurrent major depressive d isorder 01/13/2018 OPAL (generalized anxiety disorder) 04/28/2017 Overview: Uses Xanax 2-3 pills daily Chronic rx for >20 years Osteoporosis 03/26/2016 Overview: 06/15/16: not interested in treatment 03/29/16: declines Fosamax and can't make it to [facility] due to transportation issues - discuss at 06/15/16 OV DEXA: 2016: -1.5/-2.8 - high risk Macular degeneration 03/11/2016 Overview: Folowed by Dr. Muniz Glaucoma 03/11/2016 Overview: Followed by Dr. Muniz Chronic bilateral low back pain without sciatica 09/04/2015 Vitamin B12 deficiency 09/04/2015 Overview: Oral rx S/P partial colectomy 05/17/2015 Overview: 2104 due to diverticulitis Insomnia 01/21/2015 HTN, goal below 140/90 12/03/2014 Vitamin D deficiency 05/04/2013 Hypothyroidism 09/17/2009 documented as of this encounter (statuses as of 04/03/2024) Resolved Problems Problem Noted Date Diagnosed Date Resolved Date Generalized weakness 04/15/2023 024 JESSICA (acute kidney injury) 10/14/2022 Hypertensive urgency 10/14/2022 022 Frequent falls 10/14/2022 02/02/2024 Chronic kidney disease, stage 3b 03/03/2021 02/24/2022 Overview: Per CKD protocol Hypertensive kidney disease with chronic kidney disease stage III 12/10/2020 02/24/2022 Class 3 severe obesity due t o excess calories with serious comorbidity and body mass index (BMI) of 40.0 to 44.9 in adult 12/07/2019 0 Class 3 severe obesity due t o excess calories with serious comorbidity and body mass index (BMI) of 40.0 to 44.9 in adult 12/07/2019 2 Hypertensive kidney disease with chronic kidney disease stage III 08/17/2019 09/04/2020 Overview: Per CKD protocol Body mass index (BMI) of 40. 0 to 44.9 in adult 07/25/2017 01/03/2020 Overview: Per Obesity protocol #1 Rash and nonspecific skin eruption 04/28/2017 01/13/2018 Overview: Chronic mildly pruritic rash on her toso Abnormal glucose 01/06/2017 01/13/2018 Dermatitis 03/23/2016 04/28/2017 Kidney disease, chronic, sta ge III (GFR 30-59 ml/min) 09/04/2015 09/07/2019 Iron deficiency anemia 05/04/201309/04 Anxiety states 12/08/2012 08/22/2015 Overview: Prn alprazolam ICD-10 update of inactive term Essential hypertension, benign 04/02/2010 12/03/2014 Depression with anxiety 09/17/200908/24 Overview: Takes one pill at bedtime and 1 during the day once per week. documented as of this encounter (statuses as of 04/03/2024) Immunizations No known immunizationsdocumented as of this encounter Social History Tobacco Use Types Packs/Day Years Used Date Smoking Tobacco: Former Cigarettes 1 10 1 11/04/1978 - 09/04/1989 Smokeless Tobacco: Never Alcohol Use Standard Drinks/Week Comments No 0 (1 standard drink = 0.6 oz pur e alcohol) PHQ-2 Answer Date Recorded PHQ Adult Total Score 0 05/11/2023 Hunger Vital Sign Answer Date Recorded Within the past 12 months, y ou worried that your food would run out before you got the money to buy more. Never true 05/11/20 23 Within the past 12 months, t he food you bought just didn't last and you didn't have money to get more. Never true 05/11/2023 Sex and Gender Information Value Date Recorded Sex Assigned at Female 05/11/2023 2:25 PM EDT Gender Identity Female 05/11/2023 2:25 PM EDT Sexual Orientation Straight 05/11/2023 2: 25 PM EDT Job Start Date Occupation Industry Not on file Not on file Not on file documented as of this encounter Last Filed Vital Signs Vital Sign Reading Time Taken Comments Blood Pressure 118/72 04/03/2024 11:19 AM EDT Pulse 64 04/03/2024 11:19 AM EDT Temperature 36.4 C (97.5 F) 04/03/2024 11:19 AM E DT Respiratory Rate 18 04/03/2024 11:19 AM EDT Oxygen Saturation 100% 04/03/2024 11:19 AM EDT Inhaled Oxygen Concentration - - Weight 79 kg (174 lb 1.6 oz) 04/03/2024 11:19 AM EDT Height 152.4 cm (5') 04/03/2024 11:19 AM EDT Body Mass Index 34 04/03/2024 11:19 AM EDT documented in this encounter Functional Status Functional Status Response Date of Assess ment Are you deaf or do you have serious difficulty h earing? No 04/15/2023 Are you blind or do you have serious difficulty seeing, even when wearing glasses? No 04/15/2023 Do you have serious difficul ty walking or climbing stairs? (5 years old or older) Yes 04/17/2023 Do you have difficulty dress ing or bathing? (5 years old or older) No 04/15/2023 Because of a physical, menta l, or emotional condition, do you have difficulty doing errands alone such as visiting a doctor s office or shopping? (15 years old or older) Yes 04/15/20 Cognitive Status Response Date of Assessm ent Because of a physical, menta l, or emotional condition, do you have serious difficulty concentrating, remembering, or making decisions? (5 years old or older) No 04/15/2023 documented as of this encounter Progress Notes * Sandi Ventura PA-C - 04/03/2024 11:25 AM EDT SUBJECTIVE: Karen Kern is a 84 year old female. Nursing Notes: Carin Lopez CCMA 04/03/24 1122 Signed Chief Complaint Patient presents with Hospital Follow-Up [facility] 03/15-03/19 [facility] 03/19-03/28 Pt is here today with her daughter for hosp f/u. Pt was in the hospital for the date range above. Then to [facility]. Pt was dx with L3 compression fracture. Recent Admission: Patient was recently admitted to [facility] on 03/15. The date of discharge was 03/19 to [facility]. till 03/28.Discharge report received and reviewed. HPI: Patient presents for hospital follow up after falling. Admitted for ambulatory dysfunction andworsening back pain with chronic L3 compression fracture. Her daughter, Angela and Karen both agreethat PT was the best thing for her. She now has home health - physical/occupational therapy and nursing. Anxiety has improved as well with increasing Lexapro. Continues to sleep well with Xanax and uses occasionally through the day when she can't calm herself down from grief from her son who . Patient Active Problem List Diagnosis Vitamin D deficiency Hypothyroidism HTN, goal below 140/90 Insomnia S/P partial colectomy Chronic bilateral low back pain without sciatica Vitamin B12 deficiency Macular degeneration Glaucoma Osteoporosis OPAL (generalized anxiety disorder) Chronic fatigue Moderate episode of recurrent major depressive disorder (HCC) Chronic venous stasis dermatitis of both lower extremities Hypertensive kidney disease with stage 3b chronic kidney disease (HCC) Complicated grief History of CVA (cerebrovascular accident) Repeated falls Current Outpatient Medications Medication Sig Dispense Refill Levothyroxine Sodium 125 MCG Oral Tablet (Levoxyl) Take 1 Tablet by mouth in the morning. (at least30 min prior to breakfast or other meds). 90 Tablet 3 Clopidogrel Bisulfate 75 MG Oral Tablet (pLAVix) Take 1 Tablet by mouth in the morning. 90 Tablet 3 Rosuvastatin Calcium 20 MG Oral Tablet (Crestor) Take 1 Tablet by mouth at bedtime. 90 Tablet 3 amLODIPine Besylate 5 MG Oral Tablet (Norvasc) take 1 tablet by mouth every morning 90 Tablet 3 ALPRAZolam 0.5 MG Oral Tablet (xaNAX) Take 1 Tablet by mouth 2 times a day as needed for Anxiety orSleep. 180 Tablet 0 Escitalopram Oxalate 20 MG Oral Tablet (Lexapro) Take 1 Tablet by mouth in the morning. 30 Tablet 2 Lidocaine 4 % External Patch (Aspercreme Lidocaine) Place 1 Patch topically on the skin daily. diphenhydrAMINE HCl 25 MG Oral Capsule (Benadryl) Take 1 Capsule by mouth at bedtime as needed for Other (congestion). Cyanocobalamin 1000 MCG Oral Tablet (Cyanocobalamin) Take 1 Tablet by mouth once. Vitamin D3 1000 UNIT Oral Capsule daily. Hydrocortisone 2.5 % External Cream Administer into the rectum 3 times a day as needed for Hemorrhoids. (Patient not taking: Reported on 02/02/2024) 28 g 0 Triamcinolone Acetonide 0.1 % External Cream (Aristocort) (Patient not taking: Reported on 04/03/2024) Pantoprazole Sodium 40 MG Oral Tablet Delayed Release (Protonix) Take 1 Tablet by mouth in the morning. (Patient not taking: Reported on 04/03/2024) 90 Tablet 3 No current facility-administered medications for this visit. Current and discharge medications have been reconciled. Review of patient's allergies indicates: Allergen Reactions Ultram [Tramadol] Itching Nitrofurantoin Monohyd Macro Unknown Amoxicillin Atorvastatin nausea Augmentin [Amoxicillin-Pot Clavulanate] "severe yeast infection" Clarithromycin Ramipril Cough Review of Systems: All reviewed and negative unless mentioned in HPI. OBJECTIVE: BP 118/72 | Pulse 64 | Temp 36.4 C (97.5 F) (Temporal Artery) | Resp 18 | Ht 1.524 m (5') | Wt 79 kg (174 lb 1.6 oz) | SpO2 100% | BMI 34.00 kg/m | BSA 1.83 m PHYSICAL EXAM: General: alert and no distress Neck: supple, no adenopathy, no bruits, thyroid normal size, non-tender, without nodularity Heart: regular rate & rhythm, no murmur, and no gallops Lungs: chest symmetric with normal AP diameter, no chest deformities noted, no chest wall tenderness, lungs clear to auscultation Pulses: radial=2/4, posterior tibial=2/4 Abdomen: abdomen soft, non-tender, and normal bowel sounds Extremities: less than 2 second capillary refill, no edema, no clubbing, no cyanosis Neuro Exam: no focal motor/sensory deficits Gait: using cane for ambulation Skin: skin color, texture, turgor are normal ASSESSMENT/PLAN: Hospital discharge follow-up (Primary) - DISCH MED RECON CUR MED LIS OPAL (generalized anxiety disorder) - ALPRAZolam 0.5 MG Oral Tablet (xaNAX); Take 1 Tablet by mouth 2 times a day as needed for Anxietyor Sleep. Compression fracture of L3 vertebra with routine healing, subsequent encounter Ambulatory dysfunction Follow-up: Return as scheduled. | Check-out note: Cancel 04/16. I spent a total of 40-54 minutes (exact time 44 mins) minutes on the date of service in preparation, delivery, and documentation of the care provided to Karen Kern excluding any time spent in performance of separately billed services. Sandi Ventura PA-C documented in this encounter Nursing Notes * Carin Lopez CCMA - 04/03/2024 11:10 AM EDT Chief Complaint Patient presents with Hospital Follow-Up [facility] 03/15-03/19 [facility] 03/19-03/28 Pt is here today with her daughter for hosp f/u. Pt was in the hospital for the date range above. Then to [facility]. Pt was dx with L3 compression fracture. documented in this encounter Plan of Treatment Upcoming Encounters Date Type Department Care Team (Late st Contact Info) Description 08/06/2024 2:00 PM EDT Office Visit [address] [facility] [place] [phone] Sandi Ventura PA-C [phone] [facility] [address] [place] [phone] Health Maintenance Due Date Last Done Comments DTaP,Tdap,and Td Vaccines (1 - Tdap) 1959 Zoster Vaccines (1 of 2) 1990 Pneumococcal Vaccine: 65+ Years (1 of 1 - PCV) 2005 DXA Scan 03/18/2018 03/18/2016 *BISPHONATE OR OTHER ACCEPTABLE MEDICATION NEEDED FOR OSTEOPOROSIS (REFER TO SMARTSET #1146) 10/18/2022 COVID-19 Vaccine ( season) 2023 CKD PHOS USE SMARTSET 14523 04/15/202403/25, 10/15/2022, 12/24/2021, Additional history exists Depression Monitoring 05/11/2024 05/11/2023 Influenza Vaccine (FLU shot) (Season Ended) 2024 GFR 09/26/2024 03/27/2024, 02/22, 09/30/2023, Additional history exists Albumin/Creatinine Ratio 09/30/2024 023, 09/15/2022, 12/24/2021 TSH 09/30/2024 09/30/2023, 07/0 12/2022, 04/15/2023, Additional history exists CKD HGB USE SMARTSET 32316 03/27/202503/27, 03/20/2024, 05/06/2023, Additional history exists VITAMIN D LEVEL ONCE IN A LIFETIME-USE SMARTSET# 35633 Completed 04/16/2023, 09/02/2022, 11/14/2020, Additional history exists GARDASIL-HPV IMMUNIZATION SERIES Aged Out No longer eligible based on patient's age to complete this topic Hepatitis B Aged Out No longer eligi ble based on patient's age to complete this topic MENINGOCOCCAL (MENACTRA/MENVEO) Aged Out No longer eligible based on patient's age to complete this topic documented as of this encounter Medical Devices Not on filedocumented as of this encounter Visit Diagnoses Diagnosis Hospital discharge follow-up- Primary Other follow-up examination OPAL (generalized anxiety disorder) Generalized anxiety disorder Compression fracture of L3 vertebra with routine healing, subsequent encounter Ambulatory dysfunction documented in this encounter Advance Directives * Limited Code (Latest Code Status on File) Date Activated Date Inactivated Comments 04/15/2023 8:12 PM 04/22/2023 2:56 PM This order r eflects the patients wishes and were consensually agreed upon. Question Answer Comments Discussion of Advance Direct kirk occurred with: Patient Does the patient have a Living Will? Yes , in chart and reviewed as current Does the patient have Health Care Power of [place]? No Bag Valve Device? No Intubation? No Cardiac Compressions? Yes Defibrillation? No Synchronized Cardioversion? No External Pacemaker? No Cardiac Drugs? Yes * No Code Date Activated Date Inactivated Comments 10/14/2022 7:41 PM 10/15/2022 9:05 PM This order reflects the patients wishes and were consensually agreed upon. Question Answer Comments Discussion of Advance Directives occurred with: Patient Care Teams Cutter Grind Tool Technician Relationship Specialty Start Date End Date Sandi Ventura PA-C [address] [facility] [place] [id number] PCP - General Physician Dealer Card Room 12/07/19 documented as of this encounter
--- OUTSIDE RECORDS SUMMARY | 2024-05-16 00:50 | External Medical Summary | Summary of Care ---
Author Name Unknown Organization [facility] Address [address] [place] [address] Phone [phone] Care Team Providers Care Career Development Manager Name Role Phone Sandi Ventura PA-C Primary Care Provider +1- [phone] Reason for Visit * Reason Onset Date Comments Health Maintenance 04/24/2024 Encounter Details Date Type Department Care Team (Late st Contact Info) Description 04/24/2024 Telephone [place] [address] [place], [place] [phone] Sandi Ventura PA-C [facility] [address] [place], [place] [phone] Health Maintenance Allergies Active Allergy Reactions Criticality Noted Date Comments Amoxicillin 04/21/2023 Atorvastatin 06/15/2016 nausea Amoxicillin-Pot Clavulanate 03/11/20 15 "severe yeast infection" Clarithromycin 05/25/2022 Nitrofurantoin Monohyd Macro Unknown Medium 014 Ramipril Cough Low 06/08/2012 Tramadol Itching High 03/11/2016 documented as of this encounter (statuses as of 04/24/2024) Medications Medication Sig Dispensed Refills Start Date End Date Status Hydrocortisone 2.5 % External Cream Administer into the rectum 3 times a day as needed for Hemorrhoids. 28 g 04/22/2023 Active Additional Information Patient not taking.Reported on 02/02/2024 Triamcinolone Acetonide 0.1 % External Cream (Aristocort) 04/25/2023 Active Levothyroxine Sodium 125 MCG Oral Tablet (Levoxyl)Indications :Acquired hypothyroidism Take 1 Tablet by mouth in the morning. (at least 30 min prior to breakfast or other meds). 90 Tablet 3 05/11/2023 Active Clopidogrel Bisulfate 75 MG Oral Tablet (pLAVix)Indications: Cerebrovascular disease, arteriosclerotic, post-stroke Take 1 Tablet by mouth in the morning. 90 Tablet 3 08/01/2023 Active Pantoprazole Sodium 40 MG Oral Tablet Delayed Release (Protonix)Indication s:Gastroesophageal reflux disease without esophagitis Take 1 Tablet by mouth in the morning. 90 Tablet 3 08/01/2023 Active Additional Information Patient not taking.Reported on 04/03/2024 Rosuvastatin Calcium 20 MG Oral Tablet (Crestor)Indications :Cerebrovascular disease, arteriosclerotic, post-stroke Take 1 Tablet by mouth at bedtime. 90 Tablet 3 08/01/2023 Active amLODIPine Besylate 5 MG Oral Tablet (Norvasc)Indications :HTN, goal below 140/90 take 1 tablet by [...] 03/14/2024 Active ALPRAZolam 0.5 MG Oral Tablet (xaNAX)Indications:G AD (generalized anxiety disorder) Take 1 Tablet by mouth 2 times a day as needed for Anxiety or Sleep. 180 Tablet 04/03/2024 Active documented as of this encounter (statuses as of 04/24/2024) Active Problems Problem Noted Date Diagnosed Date [...] declines Fosamax and can't make it to [facility] due to transportation issues - discuss [...] as of this encounter (statuses as of 04/24/2024) Resolved Problems Problem Noted Date Diagnosed Date [...] as of this encounter (statuses as of 04/24/2024) Immunizations No known immunizationsdocumented as of this [...] money to get more. Never true 05/11/2023 Childcare Answer Date Recorded Do you feel overwhelmed with taking care of a child, family member or friend? No 05/11/2023 Does your family need help f inding childcare? (Household - for ages 0-17 years) Not on file 05/11/2023 Clothing Answer Date Recorded Have you been unable to get clothing when it was really needed? No 05/11/2023 Is your family able to get c lothes or diapers when needed? (Household - for ages 0-17 years) Not on file 05/11/2023 Personal Safety Answer Date Recorded Do you feel unsafe or have concerns for your saf ety? No 05/11/2023 Do you have concerns for you r family's safety? (Household - for ages 0-17 years) Not on file 05/11/2023 Utilities Answer Date Recorded Do you have trouble paying y our heating, water, or electric bill? No 05/11/2023 Is your family able to pay t he heat, water, or electric bill? (Household - for ages 0-17 years) Not on file 05/11/2023 Does your family have access to good internet? (Household - for ages 0-17 years) Not on file 05/11/2023 Employment Status Answer Date Recorded Are you unemployed or without regular income? No 05/11/2023 Does the household have a re gular source of income? (Household - for ages 0-17 years) Not on file 05/11/2023 Social Connections Answer Date Recorded How often do you feel lonely or isolated from th ose around you? Never 05/11/2023 Financial Resource Strain Answer Date R ecorded Do you have any trouble payi ng for your medications, or do you think you might in the future? No 05/11/2023 Does your family have troubl e paying for medicine? (Household - for ages 0-17 years) Not on file 05/11/2023 Transportation Needs Answer Date Record ed READ ONLY Do you have troubl e getting a ride to medical visits or work? Never True 05/11/2023 Does your family have a hard time getting a ride to doctors visits? (Household - for ages 0-17 years) Not on file 05/11/2023 Has lack of transportation k ept you from medical appointments, meetings, work, or from getting things needed for daily living? Check all that apply. (Adult - for ages 18 years and over) Not on file 05/11/2023 Do you (or your family) have trouble finding or paying for a ride (transportation)? (Household - for ages 0-17 years) Not on file 05/11/2023 Housing Stability Answer Date Recorded Do you currently live in a s helter or have no steady place to sleep at night? No 05/11/2023 READ ONLY Do you think you a re at risk of becoming homeless? No 05/11/2023 Does your family worry about paying for your home or becoming homeless? (Household - for ages 0-17 years) Not on file 0 05/11/2023 Are you homeless or worried that you might be in the future? (Adult - for ages 18 years and over) Not on file Are you (or your family) gricelda eless or worried that you might be in the future? (Household - for ages 0-17 years) Not on file Food Insecurity Answer Date Recorded Do you need food for this week? No 05/11/2023 Are you able to get enough f ood for your family? (Household - for ages 0-17 years) Not on file 05/11/2023 Does your family need food t his week? (Household - for ages 0-17 years) Not on file 05/11/2023 Do you always have enough fo od for your family? (Household - for ages 0-17 years) Not on file 05/11/2023 Sex and Gender Information Value Date Recorded Sex Assigned at Female 05/11/2023 2:25 PM EDT Gender Identity Female 05/11/2023 2:25 PM EDT Sexual Orientation Straight 05/11/2023 2: 25 PM EDT Job Start Date Occupation Industry Not on file Not on file Not on file documented as of this encounter Functional Status Functional Status Response [...] No 04/15/2023 documented as of this encounter Miscellaneous Notes * Telephone Encounter - Radha Green LPN - 04/24/2024 10:20 AM EDT Care Gaps Comprehensive Care Outreach Last Office/Telemedicine Visit: 04/03/2024 (in office), 10/21/2022 (telemedicine) Next Office Visit: 08/06/2024 Hemoglobin AIC Results: Lab Results Component Value Date/Time HEMOGLOBIN A1C - [facility] 5.2 10/15/2022 05:47 AM HEMOGLOBIN A1C - [facility] 5.5 09/02/2022 03:12 PM HEMOGLOBIN A1C - [facility] 5.6 09/12/2017 09:46 AM BP Readings from Last 1 Encounters: 04/03/24 118/72 Reviewed Health Maintenance below: Health Maintenance Topic Date Due DXA Scan 03/18/2018 CKD PHOS USE SMARTSET 40069 04/15/2024 GFR 09/26/2024 Albumin/Creatinine Ratio 09/30/2024 TSH 09/30/2024 Care Gap Outreach Action Taken: Left message documented in this encounter Plan of Treatment Upcoming Encounters Date Type Department Care Team (Late st Contact Info) Description 08/06/2024 2:00 PM EDT Office Visit [place] [address] [place] [address] Sandi Ventura PA-C [address] [place] [address] Health Maintenance Due Date Last Done Comments DTaP,Tdap,and Td Vaccines (1 - Tdap) 1959 Zoster Vaccines (1 of 2) 1990 Pneumococcal Vaccine: 65+ Years (1 of 1 - PCV) 2005 DXA Scan 03/18/2018 03/18/2016 *BISPHONATE OR OTHER ACCEPTABLE MEDICATION NEEDED FOR OSTEOPOROSIS (REFER TO SMARTSET #1146) 10/18/2022 COVID-19 Vaccine ( - season) 2023 CKD PHOS USE SMARTSET 04501 04/15/202403/25, 10/15/2022, 12/24/2021, Additional history exists Depression Monitoring 05/11/2024 05/11/2023 Influenza Vaccine (FLU shot) (#1) 2024 GFR 09/26/2024 03/27/2024, 02/22, 09/30/2023, Additional history exists Albumin/Creatinine Ratio 09/30/2024 023, 09/15/2022, 12/24/2021 TSH 09/30/2024 09/30/2023, 07/0 12/2022, 04/15/2023, Additional history exists CKD HGB USE SMARTSET 94491 03/27/202503/27, 03/20/2024, 05/06/2023, Additional history exists VITAMIN D LEVEL ONCE IN A LIFETIME-USE SMARTSET# 28251 Completed 04/16/2023, 09/02/2022, 11/14/2020, Additional history exists [...] Not on filedocumented as of this encounter Advance Directives * Limited Code [...] the patient have Health Care Power of Biztalk Consultant? No Bag Valve Device? No Intubation? No Cardiac Compressions? Yes Defibrillation? No Synchronized Cardioversion? No External Pacemaker? No Cardiac Drugs? Yes * No Code Date Activated Date Inactivated Comments 10/14/2022 7:41 PM 10/15/2022 9:05 PM This order reflects the patients wishes and were consensually agreed upon. Question Answer Comments Discussion of Advance Directives occurred with: Patient Care Teams Career Development Manager Relationship Specialty Start Date End Date Sandi Ventura PA-C [address] [facility] [place] [address] PCP - General Physician Pipeline Technician 12/07/19 documented as of this encounter
--- OUTSIDE RECORDS SUMMARY | 2024-05-16 00:50 | External Medical Summary | Summary of Care ---
Author Name Unknown Organization [facility] Address [address] [place] [address] Phone [phone] Care Team Providers Care Family Living Educator Name Role Phone Sandi Ventura PA-C Primary Care Provider +1- [phone] Reason for Visit * Reason Comments eRx-Medication Refill Encounter Details Date Type Department Care Team (Late st Contact Info) Description 04/02/2024 Refill [place] [address] [place], [place] [phone] Sandi Ventura PA-C [facility]2 [facility] [address] [place], [place] [phone] OPAL (generalized anxiety disorder) Allergies Active Allergy Reactions Criticality Noted Date Comments Amoxicillin 04/21/2023 Atorvastatin 06/15/2016 nausea Amoxicillin-Pot Clavulanate 03/11/20 15 "severe yeast infection" Clarithromycin 05/25/2022 Nitrofurantoin Monohyd Macro Unknown Medium 014 Ramipril Cough Low 06/08/2012 Tramadol Itching High 03/11/2016 documented as of this encounter (statuses as of 04/04/2024) Medications Medication Sig Dispensed Refills Start Date End Date Status Hydrocortisone 2.5 % External Cream Administer into the rectum 3 times a day as needed for Hemorrhoids. 28 g 04/22/2023 Active Additional Information Patient not taking.Reported on 02/02/2024 Triamcinolone Acetonide 0.1 % External Cream (Aristocort) 04/25/2023 Active Levothyroxine Sodium 125 MCG Oral Tablet (Levoxyl)Indications: Acquired hypothyroidism Take 1 Tablet by mouth in the morning. (at least 30 min prior to breakfast or other meds). 90 Tablet 3 05/11/2023 Active Clopidogrel Bisulfate 75 MG Oral Tablet (pLAVix)Indications:C erebrovascular disease, arteriosclerotic, post-stroke Take 1 Tablet by mouth in the morning. 90 Tablet 3 08/01/2023 Active Pantoprazole Sodium 40 MG Oral Tablet Delayed Release (Protonix)Indications :Gastroesophageal reflux disease without esophagitis Take 1 Tablet by mouth in the morning. 90 Tablet 3 08/01/2023 Active Additional Information Patient not taking.Reported on 04/03/2024 Rosuvastatin Calcium 20 MG Oral Tablet (Crestor)Indications: Cerebrovascular disease, arteriosclerotic, post-stroke Take 1 Tablet by mouth at bedtime. 90 Tablet 3 08/01/2023 Active amLODIPine Besylate 5 MG Oral Tablet (Norvasc)Indications: HTN, goal below 140/90 take 1 tablet by mouth every morning 90 Tablet 3 09/17/2023 Active Escitalopram Oxalate 20 MG Oral Tablet (Lexapro) Take 1 Tablet by mouth in the morning. 30 Tablet 2 03/05/2024 Active documented as of this encounter (statuses as of 04/04/2024) Active Problems Problem Noted Date Diagnosed Date [...] declines Fosamax and can't make it to [facility] due to transportation issues - discuss at [...] as of this encounter (statuses as of 04/04/2024) Resolved Problems Problem Noted Date Diagnosed Date [...] as of this encounter (statuses as of 04/04/2024) Immunizations No known immunizationsdocumented as of this [...] encounter Miscellaneous Notes * Telephone Encounter - Keila Li [facility] - 04/04/2024 6:23 AM EDT Refused Prescriptions: Disp Refills ALPRAZolam 0.5 MG Oral Tablet (xaNAX) 180 Ta* Sig: take 1 tablet by mouth twice a day if needed for anxiety or sleepRefused By: KEILA LI for Refusal: Duplicate Request documented in this encounter Plan of Treatment Upcoming Encounters Date Type Department Care Team (Late st Contact Info) Description 08/06/2024 2:00 PM EDT Office Visit [place] [address] [place] [address] Sandi Ventura PA-C [address] [place] [address] Health Maintenance Due Date Last Done Comments DTaP,Tdap,and Td Vaccines (1 - Tdap) 1959 Zoster Vaccines (1 of 2) 1990 Pneumococcal Vaccine: 65+ Years (1 of 1 - PCV) 2005 DXA Scan 03/18/2018 03/18/2016 *BISPHONATE OR OTHER ACCEPTABLE MEDICATION NEEDED FOR OSTEOPOROSIS (REFER TO SMARTSET #1146) 10/18/2022 COVID-19 Vaccine ( season) 2023 CKD PHOS USE SMARTSET 86088 04/15/2024/12/2022, 10/15/2022, 12/24/2021, Additional history exists Depression Monitoring 05/11/2024 05/11/2023 Influenza Vaccine (FLU shot) (Season Ended) 2024 GFR 09/26/2024 03/27/2024, 02/22, 09/30/2023, Additional history exists Albumin/Creatinine Ratio 09/30/2024 023, 09/15/2022, 12/24/2021 TSH 09/30/2024 09/30/2023, 07/0 12/2022, 04/15/2023, Additional history exists CKD HGB USE SMARTSET 26066 03/27/202503/27, 03/20/2024, 05/06/2023, Additional history exists VITAMIN D LEVEL ONCE IN A LIFETIME-USE SMARTSET# 88516 Completed 04/16/2023, 09/02/2022, 11/14/2020, Additional history exists [...] as of this encounter Visit Diagnoses Diagnosis OPAL (generalized anxiety disorder) Generalized anxiety disorder documented in this encounter Advance Directives * [...] the patient have Health Care Power of Host/Hostess Ground? No Bag Valve Device? No Intubation? No Cardiac Compressions? Yes Defibrillation? No Synchronized Cardioversion? No External Pacemaker? No Cardiac Drugs? Yes * No Code Date Activated Date Inactivated Comments 10/14/2022 7:41 PM 10/15/2022 9:05 PM This order reflects the patients wishes and were consensually agreed upon. Question Answer Comments Discussion of Advance Directives occurred with: Patient Care Teams Family Living Educator Relationship Specialty Start Date End Date Sandi Ventura PA-C [address] [place] [address] [place] [address] PCP - General Physician Still Runner 12/07/19 documented as of this encounter
--- OUTSIDE RECORDS SUMMARY | 2024-05-16 00:51 | External Medical Summary | Summary of Care ---
Author Name Unknown Organization [facility] Address [address] [place] [address] Phone [phone] Care Team Providers Care Armhole Baster Hand Name Role Phone Sandi Ventura PA-C Primary Care Provider +1- [phone] Reason for Visit * Reason Onset Date Comments Home Health 03/27/2024 Appointment 03/27/2024 [facility] Encounter Details Date Type Department Care Team (Late st Contact Info) Description 03/27/2024 Telephone [place] [address] [place] [phone] Sanid Ventura PA-C [address] [place] [address] [place] [phone] Home Health; Appointment ([facility]) Allergies Active Allergy Reactions Criticality Noted Date Comments Amoxicillin 04/21/2023 Atorvastatin 06/15/2016 nausea Amoxicillin-Pot Clavulanate 03/11/20 15 "severe yeast infection" Clarithromycin 05/25/2022 Nitrofurantoin Monohyd Macro Unknown Medium 014 Ramipril Cough Low 06/08/2012 Tramadol Itching High 03/11/2016 documented as of this encounter (statuses as of 03/29/2024) Medications Medication Sig Dispensed Refills Start Date [...] the morning. 90 Tablet 3 08/01/2023 Active Rosuvastatin Calcium 20 MG Oral Tablet (Crestor)Indications :Cerebrovascular disease, arteriosclerotic, post-stroke Take 1 Tablet by mouth at bedtime. 90 Tablet 3 08/01/2023 Active amLODIPine Besylate 5 MG Oral Tablet (Norvasc)Indications :HTN, goal below 140/90 take 1 tablet by mouth every morning 90 Tablet 3 09/17/2023 Active ALPRAZolam 0.5 MG Oral Tablet (xaNAX)Indications:G AD (generalized anxiety disorder) Take 1 Tablet by mouth 2 times a day as needed for Anxiety or Sleep. 180 Tablet 12/08/2023 Active Escitalopram Oxalate 20 MG Oral Tablet (Lexapro) Take 1 Tablet by mouth in the morning. 30 Tablet 2 03/05/2024 Active documented as of this encounter (statuses as of 03/29/2024) Active Problems Problem Noted Date Diagnosed Date [...] declines Fosamax and can't make it to [facility] due to transportation issues - discuss [...] as of this encounter (statuses as of 03/29/2024) Resolved Problems Problem Noted Date Diagnosed Date [...] as of this encounter (statuses as of 03/29/2024) Immunizations No known immunizationsdocumented as of this [...] encounter Miscellaneous Notes * Telephone Encounter - Meli Villaseñor PA-C - 03/29/2024 11:57 AM EDT PCP should be willing to sign out-patient therapy orders * Telephone Encounter - Ivis Nolan LPN - 03/27/2024 9:55 AM EDT Admission/Start of Care Admission/Start of Care: Jay[facility] Intake, Calling from: [facility] Patient was Admitted to: [facility], for: compression fx of L3 and Transverse process fx of L1 and L2 from 03/19/24 to Present Referral ordered by: district operations manager. Referral received for: [facility] PT and OT Planned start of care date:Yes, Date 03/29/24 Last Office Visit: 02/02/2024 Has patient been scheduled or seen in the office for a follow up visit: Needs contacted to schedulefollow up - Please assist with scheduling. (Pt is scheduled for D/C tomorrow.) Advised that orders can not be signed until pt is scheduled for f/u. Jaylin can not accept referral until she knows PCP will sign orders. She will contact Dong and make them aware. documented in this encounter Plan of Treatment Upcoming Encounters Date Type Department Care Team (Late st Contact Info) Description 04/03/2024 11:00 AM EDT Office Visit [facility], [address] [place] [phone] Sandi Ventura PA-C [address] [facility] [address] [place] [id number] 04/16/2024 10:00 AM EDT Scheduled Telephone Ancillary, [address] [place] [phone] Nurse James Follow Up Phone Call [address] [address] 08/06/2024 2:00 PM EDT Office Visit [facility], [address] [place] [address] Sandi Ventura PA-C [address] [facility] [address] [place] [id number] Health Maintenance Due Date Last Done Comments DTaP,Tdap,and Td Vaccines (1 - Tdap) 1959 Zoster Vaccines (1 of 2) 1990 Pneumococcal Vaccine: 65+ Years (1 of 1 - PCV) 2005 DXA Scan 03/18/2018 03/18/2016 *BISPHONATE OR OTHER ACCEPTABLE MEDICATION NEEDED FOR OSTEOPOROSIS (REFER TO SMARTSET #1146) 10/18/2022 COVID-19 Vaccine ( - season) 2023 CKD PHOS USE SMARTSET 90690 04/15/202403/25, 10/15/2022, 12/24/2021, Additional history exists Influenza Vaccine (FLU shot) (Season Ended) 2024 GFR 09/26/2024 03/27/2024, 02/22, 09/30/2023, Additional history exists Albumin/Creatinine Ratio 09/30/2024 023, 09/15/2022, 12/24/2021 TSH 09/30/2024 09/30/2023, 07/0 12/2022, 04/15/2023, Additional history exists CKD HGB USE SMARTSET 38572 03/27/202503/27, 03/20/2024, 05/06/2023, Additional history exists VITAMIN D LEVEL ONCE IN A LIFETIME-USE SMARTSET# 77926 Completed 04/16/2023, 09/02/2022, 11/14/2020, Additional history exists [...] the patient have Health Care Power of Dry Wall Finisher? No Bag Valve Device? No Intubation? No Cardiac Compressions? Yes Defibrillation? No Synchronized Cardioversion? No External Pacemaker? No Cardiac Drugs? Yes * No Code Date Activated Date Inactivated Comments 10/14/2022 7:41 PM 10/15/2022 9:05 PM This order reflects the patients wishes and were consensually agreed upon. Question Answer Comments Discussion of Advance Directives occurred with: Patient Care Teams Armhole Baster Hand Relationship Specialty Start Date End Date Sandi Ventura PA-C [facility] [address] [place] [address] PCP - General Physician Patient Access Director 12/07/19 documented as of this encounter
--- OUTSIDE RECORDS SUMMARY | 2024-05-16 00:51 | External Medical Summary | Summary of Care ---
Author Name Unknown Organization [facility] Address [address] [place] [address] Phone [phone] Care Team Providers Care Physical Meteorologist Name Role Phone Sandi Ventura PA-C Primary Care Provider +1- [phone] Reason for Visit * Reason Onset Date Comments Appointment 03/14/2024 Encounter Details Date Type Department Care Team (Late st Contact Info) Description 03/14/2024 Telephone [place] [address] [place], [place] [phone] Sandi Ventura PA-C [facility] [address] [place], [place] [id number] Appointment Allergies Active Allergy Reactions Criticality Noted Date Comments Amoxicillin 04/21/2023 Atorvastatin 06/15/2016 nausea Amoxicillin-Pot Clavulanate 03/11/20 15 "severe yeast infection" Clarithromycin 05/25/2022 Nitrofurantoin Monohyd Macro Unknown Medium 014 Ramipril Cough Low 06/08/2012 Tramadol Itching High 03/11/2016 documented as of this encounter (statuses as of 03/15/2024) Medications Medication Sig Dispensed Refills Start Date [...] as of this encounter (statuses as of 03/15/2024) Active Problems Problem Noted Date Diagnosed Date [...] rx for >20 years Osteoporosis 03/26/2016 Overview: 8/23/16: not interested in treatment 03/29/16: declines Fosamax and can't make it to [facility] due to transportation issues - discuss at [...] as of this encounter (statuses as of 03/15/2024) Resolved Problems Problem Noted Date Diagnosed Date [...] as of this encounter (statuses as of 03/15/2024) Immunizations No known immunizationsdocumented as of this [...] encounter Miscellaneous Notes * Telephone Encounter - Carin Lopez CMA - 03/15/2024 11:33 AM EDT Called and talked to Alisa. Pt is currently at [facility] admitted. She took her over last night. Pts daughter will call us with updates then. * Telephone Encounter - Helen Alvarado OSA - 03/14/2024 11:15 AM EDT Pt's daughter/POA Alisa Guajardo requesting nurse callback; she advises that Pt is now ready to begin home PT for her ongoing back pain issues. There is referral in chart dated 02/02/24 by Sandi Ventura; daughter states Pt was not ready for appts until now. Alisa would like to discuss Pt's home logistics with nurse and to see which home health agency would be best fit for Pt. Phone number for Alisa Guajardo is [phone]. documented in this encounter Plan of Treatment Upcoming Encounters Date Type Department Care Team (Late st Contact Info) Description 04/16/2024 10:00 AM EDT Scheduled Telephone Ancillary, Charles [address] [place] [address] [address] [facility] [place] [address] [facility] Nurse Follow Up Phone Call Schedule [place] [address] [place] [address] 08/06/2024 2:00 PM EDT Office Visit [facility], [place] [phone] [place] [address] Sandi Ventura PA-C [address] [place] [address] Health Maintenance Due Date Last Done Comments DTaP,Tdap,and Td Vaccines (1 - Tdap) 1959 Zoster Vaccines (1 of 2) 1990 Pneumococcal Vaccine: 65+ Years (1 of 1 - PCV) 2005 DXA Scan 03/18/2018 03/18/2016 *BISPHONATE OR OTHER ACCEPTABLE MEDICATION NEEDED FOR OSTEOPOROSIS (REFER TO SMARTSET #1146) 10/18/2022 COVID-19 Vaccine ( - season) 2023 GFR 03/31/2024 09/30/2023, 04/23, 05/02/2023, Additional history exists CKD PHOS USE SMARTSET 48475 04/15/202403/25, 10/15/2022, 12/24/2021, Additional history exists CKD HGB USE SMARTSET 28601 05/06/202405/06, 05/02/2023, 04/29/2023, Additional history exists Influenza Vaccine (FLU shot) (Season Ended) 2024 Albumin/Creatinine Ratio 09/30/2024 023, 09/15/2022, 12/24/2021 TSH 09/30/2024 09/30/2023, 07/0 12/2022, 04/15/2023, Additional history exists VITAMIN D LEVEL ONCE IN A LIFETIME-USE SMARTSET# 88667 Completed 04/16/2023, 09/02/2022, 11/14/2020, Additional history exists [...] the patient have Health Care Power of Bender Machine? No Bag Valve Device? No Intubation? No Cardiac Compressions? Yes Defibrillation? No Synchronized Cardioversion? No External Pacemaker? No Cardiac Drugs? Yes * No Code Date Activated Date Inactivated Comments 10/14/2022 7:41 PM 10/15/2022 9:05 PM This order reflects the patients wishes and were consensually agreed upon. Question Answer Comments Discussion of Advance Directives occurred with: Patient Care Teams Physical Meteorologist Relationship Specialty Start Date End Date Sandi Ventura PA-C [facility] [place] [address] [place] [address] PCP - General Physician Radar Air Traffic Controller 12/07/19 documented as of this encounter
--- OUTSIDE RECORDS SUMMARY | 2024-05-16 00:51 | External Medical Summary ---
Author Name Unknown Address Unknown Organization K[facility] [place] [place] [address] Laboratory Report Ordering Provider Test Date Status FAY ANDERSON 03/27/2024 05:55:48 Final Observation Date Value Abnormality Reference (Units ) Status WBC, Total 03/27/2024 05:55:48 5.89 4.00-10.8 0 (K/uL) Final RBC 03/27/2024 05:55:48 3.79 3.85-5.15 (M/uL) Final Hemoglobin 03/27/2024 05:55:48 11.7 Below low normal 12 .0-15.3 (g/dL) Final HCT 03/27/2024 05:55:48 37.2 36.0-45.2 (%) Final MCV 03/27/2024 05:55:48 98.2 81.5-97.5 (fL) Final MCH 03/27/2024 05:55:48 30.9 27.0-34.0 (pg) Final MCHC 03/27/2024 05:55:48 31.5 32.0-36.0 (g/dL) Final RDW 03/27/2024 05:55:48 13.2 11.5-15.5 (%) Final Platelets 03/27/2024 05:55:48 246 140-400 (K /uL) Final MPV 03/27/2024 05:55:48 10.2 6.6-11.1 ( fL) Final Performing Location [facility] [place] [place] [address]
--- OUTSIDE RECORDS SUMMARY | 2024-05-16 00:51 | External Medical Summary ---
Author Name Unknown Address Unknown Organization K09[facility] [place] [address] Laboratory Report Ordering Provider Test Date Status FAY ANDERSON 03/27/2024 05:55:48 Final Observation Date Value Abnormality Reference (Units ) Status BUN 03/27/2024 05:55:48 21 Above high normal 6-20 (mg/dL) Final Creatinine 03/27/2024 05:55:48 1.2 Above high normal 0.5-1.0 (mg/dL) Final Glomerular filtration rate/1.73 sq M.predicted [Volume Rate/Area] in Serum, Plasma or Blood by Creatinine-based formula (CKD-EPI) 03/27/2024 05:55:48 47 Below low normal >=60 (mL/min) Final eGFR is calculated based on the CKD-EPI 2020 equation Sodium 03/27/2024 05:55:48 141 135-146 (m mol/L) Final Potassium 03/27/2024 05:55:48 4.6 3.5-5.1 (m mol/L) Final Cl 03/27/2024 05:55:48 105 98-107 (mm ol/L) Final CO2 03/27/2024 05:55:48 26 22-32 (mmo l/L) Final Anion gap 03/27/2024 05:55:48 10 7-15 (mmol /L) Final Glucose 03/27/2024 05:55:48 87 70-120 (mg /dL) Final Calcium 03/27/2024 05:55:48 9.1 8.4-10.2 ( mg/dL) Final Performing Location [facility] [address]
--- OUTSIDE RECORDS SUMMARY | 2024-05-16 00:51 | External Medical Summary ---
Author Name Unknown Address Unknown Organization [facility] [place] [address] Laboratory Report Ordering Provider Test Date Status FAY ANDERSON 03/20/2024 05:57:44 Final Observation Date Value Abnormality Reference (Units ) Status WBC, Total 03/20/2024 05:57:44 6.00 4.00-10.8 0 (K/uL) Final RBC 03/20/2024 05:57:44 3.76 3.85-5.15 (M/uL) Final Hemoglobin 03/20/2024 05:57:44 11.5 Below low normal 12 .0-15.3 (g/dL) Final HCT 03/20/2024 05:57:44 36.9 36.0-45.2 (%) Final MCV 03/20/2024 05:57:44 98.1 81.5-97.5 (fL) Final MCH 03/20/2024 05:57:44 30.6 27.0-34.0 (pg) Final MCHC 03/20/2024 05:57:44 31.2 32.0-36.0 (g/dL) Final RDW 03/20/2024 05:57:44 13.3 11.5-15.5 (%) Final Platelets 03/20/2024 05:57:44 221 140-400 (K /uL) Final MPV 03/20/2024 05:57:44 10.2 6.6-11.1 ( fL) Final Performing Location [facility] [place] [address]
--- OUTSIDE RECORDS SUMMARY | 2024-05-16 00:51 | External Medical Summary | Summary of Care ---
Author Name Unknown Organization [facility] Address [address] [place] [address] Phone [phone] Care Team Providers Care Box Feeder Name Role Phone Sandi Ventura PA-C Primary Care Provider +1- [phone] Reason for Visit * Reason Onset Date Comments Home Health 03/27/2024 Appointment 03/27/2024 [facility] Encounter Details Date Type Department Care Team (Late st Contact Info) Description 03/27/2024 Telephone [place] [address] [place] [id number] Sandi Ventura PA-C [address] [place] [address] [place] [phone] Home Health; Appointment ([facility]) Allergies Active Allergy Reactions Criticality Noted Date [...] declines Fosamax and can't make it to [facility] due to transportation issues - [...] encounter Miscellaneous Notes * Telephone Encounter - Monica Cook LPN - 03/29/2024 12:40 PM EDT [facility] aware * Telephone Encounter - Meli Villaseñor PA-C - 03/29/2024 11:57 AM EDT PCP should be willing to sign out-patient therapy orders * Telephone Encounter - Ivis Nolan LPN - 03/27/2024 9:55 AM EDT Admission/Start of Care Admission/Start of Care: Jaylin, Aime, Calling from: Dorian Patient was Admitted to: [facility], for: compression fx of L3 and Transverse process fx of L1 and L2 from 03/19/24 to Present Referral ordered by: security and compliance project manager. Referral received for: [facility], PT and OT Planned start of care [...] PCP will sign orders. She will contact [facility] and make them aware. documented in this encounter Plan of Treatment Upcoming Encounters Date Type Department Care Team (Late st Contact Info) Description 04/03/2024 11:00 AM EDT Office Visit [facility], [address] [address] Sandi Ventura PA-C [facility] [address] [place] [address] 04/16/2024 10:00 AM EDT Scheduled Telephone Ancillary, [address] [address] [place] Nurse Follow Up Phone Call [address] [address] 08/06/2024 2:00 PM EDT Office Visit [address] [address] Sandi Ventura PA-C [facility] [address] [place] [address] Health Maintenance Due Date Last Done Comments DTaP,Tdap,and Td Vaccines (1 - Tdap) 1959 Zoster Vaccines (1 of 2) 1990 Pneumococcal Vaccine: 65+ Years (1 of 1 - PCV) 2005 DXA Scan 03/18/2018 03/18/2016 *BISPHONATE OR OTHER ACCEPTABLE MEDICATION NEEDED FOR OSTEOPOROSIS (REFER TO SMARTSET #1146) 10/18/2022 COVID-19 Vaccine ( - 2022- season) 2023 CKD PHOS USE SMARTSET 37559 04/15/2024 06/2 12/2022, 10/15/2022, 12/24/2021, Additional history exists Influenza Vaccine (FLU shot) (Season Ended) 2024 GFR 09/26/2024 03/27/2024, 02/22, 09/30/2023, Additional history exists Albumin/Creatinine Ratio 09/30/2024 023, 09/15/2022, 12/24/2021 TSH 09/30/2024 09/30/2023, 07/0 12/2022, 04/15/2023, Additional history exists CKD HGB USE SMARTSET 85898 03/27/202503/27, 03/20/2024, 05/06/2023, Additional history exists VITAMIN D LEVEL ONCE IN A LIFETIME-USE SMARTSET# 73748 Completed 04/16/2023, 09/02/2022, 11/14/2020, Additional history exists [...] the patient have Health Care Power of Crane Operator? No Bag Valve Device? No Intubation? No Cardiac Compressions? Yes Defibrillation? No Synchronized Cardioversion? No External Pacemaker? No Cardiac Drugs? Yes * No Code Date Activated Date Inactivated Comments 10/14/2022 7:41 PM 10/15/2022 9:05 PM This order reflects the patients wishes and were consensually agreed upon. Question Answer Comments Discussion of Advance Directives occurred with: Patient Care Teams Box Feeder Relationship Specialty Start Date End Date Sandi Ventura PA-C [address] [facility] [address] [place] [address] PCP - General Physician Electrician Powerhouse 12/07/19 documented as of this encounter
--- OUTSIDE RECORDS SUMMARY | 2024-05-16 00:51 | External Medical Summary ---
Author Name Unknown Address Unknown Organization [facility] [address] Laboratory Report Ordering Provider Test Date Status FAY ANDERSON 03/20/2024 05:57:44 Final Observation Date Value Abnormality Reference (Units ) Status BUN 03/20/2024 05:57:44 27 Above high normal 6-20 (mg/dL) Final Creatinine 03/20/2024 05:57:44 1.2 Above high normal 0.5-1.0 (mg/dL) Final Glomerular filtration rate/1.73 sq M.predicted [Volume Rate/Area] in Serum, Plasma or Blood by Creatinine-based formula (CKD-EPI) 03/20/2024 05:57:44 43 Below low normal >=60 (mL/min) Final eGFR is calculated based on the CKD-EPI 2020 equation Sodium 03/20/2024 05:57:44 141 135-146 (m mol/L) Final Potassium 03/20/2024 05:57:44 4.7 3.5-5.1 (m mol/L) Final Cl 03/20/2024 05:57:44 104 98-107 (mm ol/L) Final CO2 03/20/2024 05:57:44 24 22-32 (mmo l/L) Final Anion gap 03/20/2024 05:57:44 13 7-15 (mmol /L) Final Glucose 03/20/2024 05:57:44 88 70-120 (mg /dL) Final Calcium 03/20/2024 05:57:44 8.9 8.4-10.2 ( mg/dL) Final Performing Location [facility] [place] [address]
[2024-05-16] MEDS: LEVOTHYROXINE SODIUM 125 MCG TABLET PO SCH (05:34)
[2024-05-16] MEDS: CLOPIDOGREL BISULFATE 75 MG TAB PO SCH (07:55)
[2024-05-16] MEDS: amLODIPine BESYLATE 5 MG TAB PO SCH (07:55)
[2024-05-16] MEDS: ESCITALOPRAM OXALATE 20 MG TAB PO SCH (07:55)
[2024-05-16] MEDS: CYANOCOBALAMIN (B-12) 500 MCG TABLET PO SCH (07:55)
[2024-05-16] MEDS: CHOLECALCIFEROL 25 MCG (1000 UNITS) TAB PO SCH (07:55)
[2024-05-16] MEDS: LIDOCAINE 5% 1 PATCH TD SCH (07:56)
[2024-05-16 08:02] LABS: BUN Creatinine Ratio 16.8 (10-20); Calcium 8.6 mg/dl (8.6-10.3); Est GFR (African American) 59.2 ml/min; Est GFR (Non-African American) 51.1 ml/min; Potassium 3.9 mmol/L (3.5-5.1)
--- NOTE | 2024-05-16 15:02 | Hospitalist Progress Note ---
Date of Service May 16, 2024 Assessment & Plan (1) Frequent falls: (2) Weakness: (3) Gait abnormality: Plan: This is an 84yo F with a PMH of history of CVA, hypothyroidism, HTN, depression, gait abnormality with frequent falls and other medical problems listed below who presents from home after 3 falls in the past day. Imaging reviewed as above- no acute traumatic findings or fractures Lumbar spine CT re-demonstrating chronic L3 compression deformity Lives alone and ambulates with a walker. Does not currently feel safe to return home unless stronger UA unremarkable Fall precautions PT/OT evals for likely placement Lidocaine patch, scheduled Tylenol (4) HTN (hypertension): Plan: BP 152/87 Continue amlodipine (5) CKD (chronic kidney disease), stage III: Plan: Cr 1.21 (baseline ~ 1.2). Monitor with daily BMP (6) Hypothyroidism: Plan: Continue levothyroxine (7) Mood disorder: Plan: Stable. Continue SSRI, alprazolam at night (may be beneficial to wean dose given age and fall risk) (8) History of CVA (cerebrovascular accident): Plan: Continue plavix, statin DVT Ppx: SQ heparin Code status: DNR per admitting physician Dispo: Unsafe to return home. PT OT eval. Will need rehab/SNF. Medically stable. Time spent: Approx 35 mins Admission and Anticipated Discharge Date Admission Date: May 15, 2024 Subjective patient was seen and examined at bedside. Also observed walking with PT. She feels fine. Denies any new issues. States she slides from her bed as well as falls backwards while using her cane. Denies syncope. No fever, chills, CP, SOB,N/V. Review of Systems Review of Systems: All systems reviewed & are unremarkable except as noted in Subjective Physical Exam Physical Exam: General: Sitting comfortably in chair, not in distress, on room air HEENT: EOMI, JOSE, MMM Chest: Clear breath sounds bilaterally, no wheezes or crackles CVS: Regular rate and rhythm, normal heart sounds, no murmur Abdomen: Soft, non tender, not distended, normal bowel sounds Neuro: Awake, alert, oriented, conversing well, non focal Results & Data Results & Data Vital Signs (Past 12 Hours) Vital Signs Temp Pulse Resp BP Pulse Ox O2 Del Method 05/16/24 07:50 Room Air 05/16/24 07:39 36.4 C L 58 L 16 136/72 95 Room Air Laboratory Results BMP 05/16/24 05:56 Sodium 142 Potassium 3.9 Chloride 108 H Carbon Dioxide 28 BUN 17 Creatinine 1.01 Glucose 78 Calcium 8.6
[2024-05-17 07:36] LABS: Hematocrit (blood only) 34.7 % (37.0-47.0); Hemoglobin 11.6 g/dl (12.0-16.0); Mean Corpuscular Hemoglobin 30.5 pg (25.0-34.0); Mean Corpuscular Hgb Conc 33.4 g/dL (32.0-36.0); Mean Corpuscular Volume 91.3 fL (80.0-100.0); Mean Platelet Volume 9.2 fL (9.4-12.4); Platelet Count 185 K/uL (130-400); RDW Coefficient of Variation 12.9 % (11.5-14.5); RDW Standard Deviation 43.2 fL (36.4-46.3)
[2024-05-17 07:54] LABS: BUN Creatinine Ratio 16.8 (10-20); Calcium 8.9 mg/dl (8.6-10.3); Creatinine Clr Calc Pharmacy 35.8 ml/min; Est GFR (African American) 55.2 ml/min; Est GFR (Non-African American) 47.6 ml/min; Phosphorus 3.6 mg/dl (2.5-4.9); Potassium 3.8 mmol/L (3.5-5.1)
--- NOTE | 2024-05-17 12:02 | Discharge Summary ---
Date of Service May 17, 2024 Admission HPI Per Admitting Provider This is an 84yo F with a PMH of history of CVA, hypothyroidism, HTN, depression, gait abnormality with frequent falls and other medical problems listed below who presents from home after 3 falls in the past day. Lives alone and ambulates with a walker. Falls occur when she is transitioning from bed to walking and also when tipping back when holding walker and falling backwards. More weak getting herself up. Also having more issues with urinary incontinence per family at bedside. Patient denies any focal weakness or difficulty with speech or swallowing. Taking medications as prescribed. Feels like she needs more help and cannot return home safely unless she is stronger. No F/C, lightheadedness, visual changes, CP, SOB, N/V, abd pain, dysuria, diarrhea or constipation. + urinary frequency and urgency. + lower back pain that is chronic but exacerbated by falls. Admission Exam Per Admitting Provider General Appearance: WD/WN, vitals as above, NAD, sitting up in bed, pleasant, conversing easily Head: normocephalic, atraumatic Eyes: normal inspection, PERRL, conjunctivae normal, anicteric sclerae ENT: external ear and nose normal, oropharynx normal Neck: normal visual inspection, trachea midline, no thyromegaly Respiratory: normal respiratory effort, lungs clear to auscultation, no wheeze, rales, rhonchi. No accessory muscle use Cardiovascular: regular rate, rhythm, normal peripheral pulses, no BLE edema. Vessels: no JVD Chest: normal inspection of chest Abdomen/GI: normal bowel sounds, soft, nontender, no hepatosplenomegaly Extremities/Musculoskeletal: no cyanosis or clubbing, extremities motor strength 5/5 Neurologic: PERRL, EOMI, accommodation nl, no face palsy, no dysarthria, CN's II-XI intact bilaterally and moves all extremities Psychiatric: A+Ox3, + anxious Skin: no rashes, normal color, warm/dry Principal Diagnosis Frequent falls Weakness Discharge Exam General: Sitting comfortably in bed, not in distress, on room air HEENT: EOMI, JOSE, MMM Chest: Clear breath sounds bilaterally, no wheezes or crackles CVS: Regular rate and rhythm, normal heart sounds, no murmur Abdomen: Soft, non tender, not distended, normal bowel sounds Neuro: Awake, alert, oriented, conversing well, non focal Discharge Data Allergies Allergy/AdvReac Type Severity Reaction Status Date / Time No Known Allergies Allergy Verified 03/14/24 23:16 Consultations 05/15/24 11:15 ED Decision to Admit Stat Ordered Studies 05/15/24 09:18 CT cervical spine wo con Stat CT head/brain wo con Stat CT lumbar spine wo con Stat CT pelvis wo con Stat Hospital Course (1) Frequent falls: (2) Weakness: (3) Gait abnormality: Per prior attending with addendum: This is an 84yo F with a PMH of history of CVA, hypothyroidism, HTN, depression, gait abnormality with frequent falls and other medical problems listed below who presents from home after 3 falls in the past day. Imaging reviewed as above- no acute traumatic findings or fractures Lumbar spine CT re-demonstrating chronic L3 compression deformity Lives alone and ambulates with a walker. Does not currently feel safe to return home unless stronger UA unremarkable Fall precautions PT/OT evals for likely placement Lidocaine patch, scheduled Tylenol (4) HTN (hypertension): BP 152/87 Continue amlodipine (5) CKD (chronic kidney disease), stage III: Cr 1.21 (baseline ~ 1.2). Monitor with daily BMP (6) Hypothyroidism: Continue levothyroxine (7) Mood disorder: Stable. Continue SSRI, alprazolam at night (may be beneficial to wean dose given age and fall risk) (8) History of CVA (cerebrovascular accident): Continue plavix, statin DVT Ppx: SQ heparin Code status: DNR per admitting physician Dispo: Unsafe to return home. PT OT eval. Will need rehab/SNF. Medically stable. Time spent: Approx 35 mins Plan Addendum 05/17/2024: Patient was seen and examined at bedside as a follow-up of generalized weakness and ambulatory dysfunction. Patient is hemodynamically stable, denies pain, reports eating okay and moving bowels okay, reports no other complaints. Patient is being discharged to [facility] with following instruction at the point of discharge: Follow-up with your primary care physician within a week time and likely you will need labs CBC/CMP/magnesium/phosphorus. Continue with physical therapy at rehab facility. Take your medications as prescribed. Please make sure that you are able to get your medications today by calling your pharmacy before you leave the hospital so that your treatment continuity is not broken. Home Health Attestation I certify that this patient is under my care and that I, or a physicians inside sales assistant working with me, had a face to-face encounter that meets the home health [id number] encounter requirements with this patient. The encounter with the patient was in whole, or in part, for the following medical condition, which is the primary reason for home health care (list medical condition): I certify that, based on my findings, the following services are medically necessary home health services: My clinical findings support the need for the above services because: Further, I certify that my clinical findings support that this patient is homebound (i.e. absences from home require considerable and taxing effort and are for medical reasons or quaker services or infrequently or of short duration when for other reasons) because: Certification for Home Health Services: Based on the above findings, I certify that this patient is confined to the home and needs intermittent mcfp care, physical therapy and/or speech therapy or continues to need occupational therapy. The patient is under my care, and I have initiated the establishment of the plan of care. This patient will be followed by a physician who will periodically review the plan of care. Total Time Total Time Spent Total Time Spent (In Minutes): 45 Discharge Plan Discharge Items Patient Disposition: Transfer Inpatient Rehab Fac Reason For Visit: FREQUENT FALLS Discharge Diagnosis: Frequent falls Weakness Condition on Discharge: Good Activity: As commented below Activity Comment: c/w physical therapy at rehab. Non-emergency contact: Primary Care Provider Call non-emergency contact if: you have any medication questions and your symptoms worsen Follow-up/Referrals: Carlos Fung MD [Primary Care Provider] - Diet: Heart Healthy Diet Texture: Easy to Chew Addtl Attending Provider Instructions: Follow-up with your primary care physician within a week time and likely you will need labs CBC/CMP/magnesium/phosphorus. Continue with physical therapy at rehab facility. Take your medications as prescribed. Please make sure that you are able to get your medications today by calling your pharmacy before you leave the hospital so that your treatment continuity is not broken. Pending Studies at Discharge: No Stand-Alone Forms: My [facility] Skilled Items Patient informed of condition?: Yes DNR: No Discharge Level of Care: Acute rehab Communicable Disease: No Discharge Prognosis: Stable Lines: None Urinary Catheter: No Medications and DC Order Prescriptions: Continued cyanocobalamin (vitamin B-12) [Vitamin B-12] 1,000 mcg Tablet 1,000 mcg PO DAILY clopidogrel 75 mg tablet 75 mg PO QAM amlodipine 5 mg tablet 5 mg PO QAM alprazolam 0.5 mg tablet 1 mg PO HS Rx Instructions: 2 tablets po hs diphenhydramine HCl [Benadryl] 25 mg Capsule 25 mg PO DIRECTED PRN (Reason: Congestion) levothyroxine 125 mcg tablet 125 mcg PO DAILYBB cholecalciferol (vitamin D3) [Vitamin D3] 25 mcg (1,000 unit) Capsule 1,000 unit PO DAILY Rx Instructions: PT UNSURE OF STRENGTH escitalopram oxalate 20 mg tablet 20 mg PO QAM rosuvastatin 20 mg tablet 20 mg PO HS acetaminophen 325 mg Tablet 650 mg PO Q6H PRN (Reason: fever) Qty: 60 0RF polyethylene glycol 3350 [Miralax] 17 gram Powder In Packet 17 g PO DAILY PRN (Reason: constipation) Qty: 30 0RF lidocaine 4 % adhesive patch,medicated 1 patch topical DAILY Qty: 15 0RF Rx Instructions: may leave on for up to 12 hrs Discharge Orders: Discharge Order (Routine); Ordered 05/17/24 Ordered By: Khushboo Lovell Admission Data Admit Date/Time: 05/15/24 11:34 Attending Provider: Khushboo Lovell Admit Provider: Clementine Murcia Primary Care Provider: Carlos Fung I. Other Providers: Clementine Murcia; [facility]
== END 2024-05-17 13:44 | DRG 92 ==
LOC: ED 09:00 → 3N 11:34 → SUATTDRO 11:34 → 3N 13:06
DX: E03.9 Hypothyroidism, unspecified; N18.30 Chronic kidney disease, stage 3 unspecified; D64.9 Anemia, unspecified; Z86.73 Personal history of transient ischemic attack (TIA), and cerebral infarction without residual deficits; I12.9 Hypertensive chronic kidney disease with stage 1 through stage 4 chronic kidney disease, or unspecified chronic kidney disease; R53.1 Weakness; Z79.02 Long term (current) use of antithrombotics/antiplatelets; R26.9 Unspecified abnormalities of gait and mobility; M48.56XA Collapsed vertebra, not elsewhere classified, lumbar region, initial encounter for fracture; F39 Unspecified mood [affective] disorder; R29.6 Repeated falls; M54.59 Other low back pain; Z60.2 Problems related to living alone; N17.9 Acute kidney failure, unspecified